=== PATIENT | female | born 2005 | race Caucasian/White ===

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

== ENCOUNTER 2023-09-30 20:13 | Observation (INO) | payer OTHER, SELFPAY ==
--- NOTE | ~2023-09-30 | CT_ITS ---
EXAMINATION: CT soft tissue neck w con DATE: 09/30/2023 21:35 INDICATION: Right submandibular cellulitis. Right-sided mouth and neck pain. TECHNIQUE: Computed tomography (CT) of the neck was performed with 75 mL Omnipaque-350 intravenous co ntrast. Automated exposure control and iterative reconstruction technique were employed. The dose-billy gth product was 481.15 mGy-cm. COMPARISON: None FINDINGS: There is mild mucosal thickening in the ethmoid sinuses. The mastoid air cells are normal. Tooth 31 demonstrates a alevism. There are periapical lucencies at tooth 31 with breech of the li ngual cortex of the alveolar process. There is extension of soft tissue attenuation inferiorly from t his area to the skin, consistent with phlegmon. There are no pathologically enlarged lymph nodes. The re is kyphosis of cervical spine. IMPRESSION: 1. Periapical lucencies at tooth #31 with breech of the lingual cortex of the alveolar process with p hlegmon extending inferiorly to the skin. Reviewed, dictated and finalized at location E. IMPRESSION: 1. Periapical lucencies at tooth #31 with breech of the lingual cortex of the a lveolar process with phlegmon extending inferiorly to the skin.
[2023-09-30 20:17] VITALS: BP 126/76; PULSE 72; RESP 18; TEMP 36.8; O2SAT 100
--- NOTE | 2023-09-30 20:18 | ED.SKABFB ---
HPI - Skin/Abscess/Foreign Bdy General Chief complaint: Skin/Abscess/Foreign Body Stated complaint: abscess Time Seen by Provider: 09/30/23 20:17 Source: patient Mode of arrival: ambulatory Limitations: no limitations History of Present Illness HPI narrative: 17-year-old female presents to the ER with -- a cystic swelling in the anterior upper neck with surrounding redness. The patient has had a recurrent swelling with discharge with spontaneous resolution. She has had multiple rounds of antibiotics over the years. -- pain swelling around right lateral mandible and extends to the submandibular region. No fever or chills no obvious dental abnormality Other than an unerupted right lower 3rd molar history of tonsillectomy and adenoidectomy in the past no ear pain or drainage. Onset (ago): day(s) Tetanus up to date: yes Location: neck Severity: severe Pain Consistency: constant Relieving factors: none Exacerbating factors: none Context: none Associated symptoms: denies other symptoms Treatments prior to arrival: none Related Data Home Medications Medication Instructions Recorded Confirmed No Home Medications 09/30/23 09/30/23 Allergies Allergy/AdvReac Type Severity Reaction Status Date / Time No Known Allergies Allergy Unknown Verified 09/30/23 20:46 Review of Systems Review of Systems: All systems reviewed & are unremarkable except as noted in HPI and below Constitutional: Constitutional: Reports as per HPI and Reports no additional constitutional complaints Eyes: Eyes: Reports as per HPI and Reports no additional eye complaints ENT: Reports system reviewed and no additional complaints, except as documented and Reports as per HPI Comments: Right jaw pain. Pain around unerupted 3rd molar in the right lower jaw Cardiovascular: Cardiovascular: Reports as per HPI and Reports no additional cardiovascular complaints Respiratory: Respiratory: Reports as per HPI and Reports no additional respiratory complaints Gastrointestinal: Gastrointestinal: Reports as per HPI and Reports no additional gastrointestinal complaints Genitourinary: Genitourinary: Reports no additional female genitourinary complaints and Reports as per HPI Musculoskeletal: Musculoskeletal: Reports no additional musculoskeletal complaints and Reports as per HPI Integumentary/Breasts: Skin/Breast: Reports system reviewed and no additional complaints, except as docu and Reports as per HPI Comments: pain and swelling in right mandibular /submandibular region. Cystic swelling in the midline above the hyoid bone Neurologic: Reports system reviewed and no additional complaints, except as documented and Reports as per HPI Psychiatric: Psychiatric: Reports no additional psychiatric complaints and Reports as per HPI Endocrine: Endocrine: Reports no additional endocrine complaints and Reports as per HPI Hematologic/Lymphatic: Hematologic/Lymphatic: Reports no additional hematologic/lymphatic complaints and Reports as per HPI Allergic/Immunologic: Allergic/Immunologic: Reports no additional allergic/immunologic complaints and Reports as per HPI [facility] Past Medical History Medical History Anxiety Asthma Depression Endometriosis High cholesterol Missed x4 PCOD (polycystic ovarian disease) Surgical History Surgical History History of tonsillectomy and adenoidectomy Family History Family History Grandparent Colon cancer Diabetes mellitus Acute myocardial infarction Mother Polycystic ovary Endometriosis Social History Social History Smoking status: Never smoker Second hand tobacco smoke exposure: No Alcohol intake: never Substance use: never Substance use type: marijuana [place]
[2023-09-30 20:52] LABS: Basophils Absolute Auto 0.08 K/mm3 (0.00-0.10); Basophils Percent Auto 0.5 % (0.0-1.0); Eosinophils Absolute Auto 0.47 K/mm3 (0.02-0.50); Eosinophils Percent Auto 2.9 % (1.0-6.0); Hematocrit 45.1 % (35.0-49.0); Hemoglobin 14.5 g/dL (12.0-15.0); Immature Granulocyte Absolute 0.06 K/mm3 (0.00-0.00); Immature Granulocyte Percent A 0.4 % (0.0-0.0); Lymphocytes Absolute Auto 2.44 K/mm3 (1.10-4.50); Lymphocytes Percent Auto 15.3 % (18.0-42.0); Mean Corpuscular HGB Conc 32.2 g/dL (32-36); Mean Corpuscular Volume 90.2 fL (78.0-102.0); Mean Platelet Volume 9.6 fl (9.2-11.8); Monocytes Absolute Auto 0.81 K/mm3 (0.10-0.90); Monocytes Percent Auto 5.1 % (2.0-11.0); Neutrophils Absolute Auto 12.11 K/mm3 (1.70-7.20); Neutrophils Percent Auto 75.8 % (50.0-70.0); Platelet Count Result 318 K/mm3 (150-420); Red Cell Distribution Width 12.6 % (11.6-14.4)
[2023-09-30] MEDS: HYDROcodone/acetaminophen (*CRX) 5-325 MG TABLET 1 TAB PO (20:57)
[2023-09-30] MEDS: PIPERACILLN/TAZ 3.375GM/NS50ML 3.375 GM/50 ML BAG IVPB (20:57)
[2023-09-30] MEDS: LACTATED RINGERS 1,000 ML 999 ML IV CONT (20:57)
[2023-09-30 20:59] LABS: Pregnancy On Board Control Positive; Urine Pregnancy Test Negative
--- NOTE | 2023-09-30 21:02 | PC.NURSE ---
PATIENT MEDICATED PER ORDER, SEE MAR. UPDATE PROVIDED. PATIENT TEARFUL. IVF INFUSING WITHOUT DIFFICULTY, LIGHTS DIMMED PER PATIENT REQUEST FOR COMFORT. ICE BAG APPLICATION CONTINUED.
[2023-09-30 21:07] LABS: Alanine Aminotransferase 20 U/L (14-59); Albumin Level 4.4 g/dL (3.4-5.0); Alkaline Phosphatase 87 U/L (50-130); Anion Gap 12 mmol/L (4-12); Aspartate Amino Transferase 14 U/L (15-37); Bilirubin,Total 0.5 mg/dL (0.00-1.00); Blood Urea Nitrogen 14 mg/dL (7-18); Calcium 9.5 mg/dL (8.5-10.1); Carbon Dioxide 28 mmol/L (21-32); Chloride 103 mmol/L (98-108); Estimated CRCL calculation 94 ml/min; Estimated Glomerular Filt Rate > 60; Glucose 108 mg/dL (70-99); Osmolality Calculated 297 mOsm/kg (285-295); Potassium 3.5 mmol/L (3.5-5.1); Sodium 143 mmol/L (136-145); Total Protein 7.8 g/dL (6.4-8.2)
[2023-09-30 21:10] LABS: Lactic Acid Reflex 2.4 mmol/L (0.4-2.0)
[2023-09-30 21:12] LABS: Appearance Urine Clear (Clear); Bilirubin Urine Negative (Negative); Blood Urine Trace-intact (Negative); Color Urine Light Yellow (Yellow); Glucose Urine UA Negative (Negative); Ketones Urine Negative (Negative); Leukocyte Esterase Ur 2+ LEU/UL (Negative); Nitrate Urine Negative (Negative); Protein Urine Negative (Negative); Urobilinogen Urine 0.2 mg/dL (0.2-1.0)
[2023-09-30 21:18] LABS: Add Urine Microscopic? YES; Bacteria Urine 1+ /hpf; RBC Urine 0-2 /hpf (0-2); Squamous Epithelial Cell Urine Few /hpf (Few)
--- NOTE | 2023-09-30 21:25 | PC.NURSE ---
PATIENT OFF FLOOR TO CT SCAN VIA WHEELCHAIR BY [employer] AT THIS TIME.
--- NOTE | 2023-09-30 22:12 | PC.NURSE ---
DR. VANCE AT PATIENT BEDSIDE FOR UPDATE INCLUDING RESULTS AND PLAN OF CARE.
--- NOTE | 2023-09-30 22:21 | PC.NURSE ---
PATIENT AGAIN REFUSED TO CHANGE INTO GOWN DESPITE BEING ADMITTED.
[2023-09-30] MEDS: AMPICILLIN SULB 3 GM/NS 100 ML 3 GM/100 ML VIAL IVPB (22:43)
[2023-09-30] MEDS: MORPHINE SULFATE (*CRX) 2 MG/ML INJ IV PUSH (22:44)
[2023-09-30] MEDS: ONDANSETRON INJ 4 MG/2 ML VIAL IV PUSH (22:48)
[2023-09-30] MEDS: ACETAMINOPHEN 325 MG TABLET 650 MG PO (22:49)
[2023-09-30 22:53] VITALS: BP 118/73; PULSE 65; RESP 18; TEMP 37.1; O2SAT 99
[2023-09-30 23:19] VITALS: BMI 31.4
[2023-09-30 23:49] LABS: Reflex Lactic Acid Yes or No Add Lactic
[2023-10-01] VITALS: BP 119/66; PULSE 60; RESP 16; TEMP 36.6; O2SAT 95
[2023-10-01 00:12] LABS: Lactic Acid 0.7 mmol/L (0.4-2.0)
[2023-10-01] MEDS: MORPHINE SULFATE (*CRX) 2 MG/ML INJ IV PUSH ×2 (02:43→06:46)
[2023-10-01] MEDS: ACETAMINOPHEN 325 MG TABLET 650 MG PO ×2 (02:45→11:57)
[2023-10-01] MEDS: AMPICILLIN SULB 3 GM/NS 100 ML 3 GM/100 ML VIAL IVPB ×2 (06:47→11:33)
--- NOTE | 2023-10-01 07:53 | PM.IMHP ---
H&P: HPI History of Present Illness Date/Time: 10/01/23 07:53 Chief Complaint: abscess Narrative: This is a 17 year old female that has a mandiable abscess per patient she has had for three years. Patient states she has a medical card and she has to find an water and fire technician that will take her insurance. Per patient she normall y takes Ibuprofen and tyelenol and eventually the pain will go away. According to pateint it has burst and has been draining,. She normally reopens it when it stops draining. She has come in due to she is unable to take the pain. patient states she has 2 kids and she is wanting to take the pain away as it is unbearable. According to patient the pain in not uncontrolled and the morphine does not last. [facility] Past Medical History Medical History Anxiety Asthma Depression Endometriosis High cholesterol Missed x4 PCOD (polycystic ovarian disease) Surgical History Surgical History History of tonsillectomy and adenoidectomy Family History Family History Grandparent Colon cancer Diabetes mellitus Acute myocardial infarction Mother Polycystic ovary Endometriosis Social History Social History Smoking status: Never smoker Second hand tobacco smoke exposure: No Alcohol intake: current Substance use: current Substance use type: marijuana Last use: DAILY Do You Feel Safe in your Home?: Yes Lack of Transportation: No Lack of Food: Never True Current Housing: I Have Housing Concerned About Future Housing: No Difficulty Paying Gas/Electric Bills: No Difficulty Paying for Meds: No Currently Unemployed: No Education: Grade School Difficulty w/ Childcare or Family Care: No Living arrangements: with family Gender identity (if verbalized by the patient): Female Spiritual care concerns: No Meds Home Medications and Allergies Home Medications Medication Instructions Recorded Confirmed Type No Home Medications 09/30/23 09/30/23 History Allergies Allergy/AdvReac Type Severity Reaction Status Date / Time No Known Allergies Allergy Unknown Verified 09/30/23 20:46 Vital Signs Vital Signs - 24 hr 09/30/23 20:17 09/30/23 22:53 10/01/23 00:00 Temperature 98.3 F 98.8 F 97.9 F Pulse Rate 72 65 60 Respiratory Rate 18 18 16 Blood Pressure 126/76 118/73 119/66 Pulse Oximetry 100 99 95 Oxygen Delivery Room Air Room Air Room Air H&P: Results Labs Labs: Short CBC 09/30/23 Range/Units 20:48 WBC 16.0 H (4.8-10.8) K/mm3 Hgb 14.5 (12.0-15.0) g/dL Hct 45.1 (35.0-49.0) % Plt Count 318 (150-420) K/mm3 BMP 09/30/23 20:48 Sodium 143 Potassium 3.5 Chloride 103 Carbon Dioxide 28 BUN 14 Creatinine 0.94 Glucose 108 H Calcium 9.5 Liver Function 09/30/23 Range/Units 20:48 Total Bilirubin 0.5 (0.00-1.00) mg/dL AST 14 L (15-37) U/L ALT 20 (14-59) U/L Alkaline Phosphatase 87 (50-130) U/L Albumin 4.4 (3.4-5.0) g/dL Urine 09/30/23 Range/Units 21:08 Urine Color Light yellow (Yellow) Urine Appearance Clear (Clear) Urine pH 7.0 (5.0-8.0) Ur Specific Sylvia 1.020 (1.010-1.020) Urine Protein Negative (Negative) Urine Glucose (UA) Negative (Negative)
[2023-10-01 08:00] VITALS: BP 122/68; PULSE 60; RESP 14; TEMP 36.8; O2SAT 95
--- NOTE | 2023-10-01 08:19 | PM.SD2 ---
Same Day Admit/Disch: HPI History of Present Illness Chief complaint: PERIAPICAL ABSCESS Narrative: Jami Broussard is a 17 [place] [address] Emergency Room Visit Note Signed Patient: Jami Broussard MR#: [id number] : 2005 Acct:[id number] Age: 17 ADM Date: 09/30/23 [facility]: cc: Jose Stone MD; UNKNOWN,DOCTOR~ HPI - Skin/Abscess/Foreign Bdy General Chief complaint: Skin/Abscess/Foreign Body Stated complaint: abscess Time Seen by Provider: 09/30/23 20:17 Source: patient Mode of arrival: ambulatory Limitations: no limitations History of Present Illness HPI narrative: ?17-year-old female presents to the ER with -- a cystic swelling in the anterior upper neck with surrounding redness. ? The patient has had a recurrent swelling with discharge with spontaneous resolution.? She has had multiple rounds of antibiotics over the years. -- pain swelling around right lateral mandible and extends to the submandibular region. ? No fever or chills ?no obvious dental abnormality ? Other than an unerupted right lower 3rd molar ?history of tonsillectomy and adenoidectomy in the past ?no ear pain or drainage. [facility] Past Medical History Medical History Anxiety Asthma Depression Endometriosis High cholesterol Missed x4 PCOD (polycystic ovarian disease) Surgical History Surgical History History of tonsillectomy and adenoidectomy Family History Family History Grandparent Colon cancer Diabetes mellitus Acute myocardial infarction Mother Polycystic ovary Endometriosis Social History Social History Smoking status: Never smoker Second hand tobacco smoke exposure: No Alcohol intake: current Substance use: current Substance use type: marijuana Last use: DAILY Do You Feel Safe in your Home?: Yes Lack of Transportation: No Lack of Food: Never True Current Housing: I Have Housing Concerned About Future Housing: No Difficulty Paying Gas/Electric Bills: No Difficulty Paying for Meds: No Currently Unemployed: No Education: Grade School Difficulty w/ Childcare or Family Care: No Living arrangements: with family Gender identity (if verbalized by the patient): Female Spiritual care concerns: No Same Day Admit/Disch: Med Pre-admit Medications Home Medications Medication Instructions Recorded Confirmed Type amoxicillin 500 mg tablet 500 mg PO Q8H #30 tabs 10/01/23 Rx hydrocodone 5 mg-acetaminophen 325 1 tablet PO Q6H PRN pain #20 tabs 10/01/23 Rx mg tablet ibuprofen 600 mg tablet 600 mg PO TID PRN pain #20 tabs 10/01/23 Rx Review of Systems Review of Systems maniable abscess and cellulitis All systems reviewed & are unremarkable except as noted in HPI and below Exam Const: General: cooperative, healthy appearing, comfortable and no acute distress Orientation/consciousness: oriented to person, oriented to place, oriented to time and patient oriented x3 HENMT: Head: normal to inspection Face/Nose/Sinus: Normal external nose present Face and sinus: normal facial exam Face images: 1. abscess hard nodule with drainage scant amount Mouth: Yes Normal oral and palatal mucosa present and Yes moist mucous membranes Eyes: General: appearance normal, both eyes and all related structures Pupils: Equal, round and reactive pupils present Neck: Neck: normal visual inspection Chest: Chest palpation & inspection: normal inspection of the chest Resp: Effort & Inspection: normal respiratory effort and able to speak in complete sentences Cardio: Jugular ve
[2023-10-01] MEDS: MORPHINE SULFATE (*CRX) 2 MG/ML INJ (09:05)
[2023-10-01] MEDS: methylPREDNISolone SOD SUCC 40 MG VIAL (09:05)
--- NOTE | 2023-10-01 13:14 | PC.NURSE ---
Pt discharged to home with spouse. Discharge instructions given to both. Medication instructions, pain medication instructions, follow up instructions and a listing of doctors in the area. Pt also given the phone number for the [facility] for help finding dental care and mental health care. Pt taken to [place] car by LEANN per RN.
--- NOTE | 2023-10-02 09:16 | PC.NURSE ---
Discharge call back complete, no questions or concerns with dc instructions she received.
== END 2023-10-01 12:25 | disposition home or self-care (01) ==
LOC: CHSED 22:20 → CHS2ND 22:26
PROVIDERS: Admitting Provider Internal Medicine; Emergency Provider Internal Medicine Critical Care Medicine; Visit Provider Internal Medicine
DX: K04.7 Periapical abscess without sinus (principal); K12.2 Cellulitis and abscess of mouth; N39.0 Urinary tract infection, site not specified; F41.9 Anxiety disorder, unspecified; J45.909 Unspecified asthma, uncomplicated; E78.00 Pure hypercholesterolemia, unspecified; F10.90 Alcohol use, unspecified, uncomplicated; F12.90 Cannabis use, unspecified, uncomplicated
CPT/HCPCS: 36415; 70491; 80053; 81001; 81025; 83605; 85025; 87040; 87086; 87088; 96361; 96365; 96366; 96367; 96375; 96376; 99285; A9270; G0378; G0379; J0295; J2270; J2405; J2543; J2919; J7120; Q9967

== ENCOUNTER 2023-11-19 11:08 | Emergency (ER) | payer OTHER, SELFPAY ==
--- NOTE | ~2023-11-19 | US_ITS ---
EXAMINATION: US pelvic complete DATE: 11/19/2023 11:43 INDICATION: Additional and pelvic pain with bleeding Comparison:Ultrasound dated 07/30/2020 TECHNIQUE: Multiple transabdominal sonographic images of the pelvis performed. Patient refused transv aginal examination. FINDINGS: The uterus measures 7.2 x 5.4 x 3.8 cm. The endometrial complex measures 1.4 mm. The right ovary measures 3.1 x 2.2 x 2 cm and the left ovary measures 3.3 x 1.8 x 1.5 cm. There are small follicles in each ovary. Normal doppler signal in both ovaries. There is no free fluid in the pelvis. There are no abnormal masses seen on either side. IMPRESSION: 1. Unremarkable pelvic ultrasound. Reviewed, dictated and finalized at location B.
[2023-11-19 11:08] VITALS: BP 133/70; PULSE 88; RESP 20; TEMP 36.4; O2SAT 100
[2023-11-19 11:30] VITALS: BP 140/71; PULSE 66; RESP 17; O2SAT 99
[2023-11-19 11:34] LABS: Appearance Urine Sl Cloudy (Clear); Bilirubin Urine Negative (Negative); Blood Urine 3+ (Negative); Color Urine Yellow (Yellow); Glucose Urine UA Negative (Negative); Ketones Urine Negative (Negative); Leukocyte Esterase Ur Trace LEU/UL (Negative); Nitrate Urine Negative (Negative); Protein Urine Trace (Negative); Urobilinogen Urine 0.2 mg/dL (0.2-1.0)
[2023-11-19 11:43] LABS: Add Urine Microscopic? YES; RBC Urine >75 /hpf (0-2); Squamous Epithelial Cell Urine Moderate /hpf (Few); WBC Urine 0-3 /hpf (0-3)
[2023-11-19 11:44] LABS: Bacteria Urine Trace /hpf; Mucus Urine Few /lpf
[2023-11-19 12:04] LABS: Basophils Absolute Auto 0.02 K/mm3 (0.00-0.10); Basophils Percent Auto 0.4 % (0.0-1.0); Eosinophils Absolute Auto 0.15 K/mm3 (0.02-0.50); Eosinophils Percent Auto 2.8 % (1.0-6.0); Hematocrit 39.3 % (35.0-49.0); Hemoglobin 13.1 g/dL (12.0-15.0); Immature Granulocyte Absolute 0.01 K/mm3 (0.00-0.00); Immature Granulocyte Percent A 0.2 % (0.0-0.0); Lymphocytes Absolute Auto 0.89 K/mm3 (1.10-4.50); Lymphocytes Percent Auto 16.5 % (18.0-42.0); Mean Corpuscular HGB Conc 33.3 g/dL (32-36); Mean Corpuscular Hemoglobin 29.6 pg (27.0-31.0); Mean Corpuscular Volume 88.9 fL (78.0-102.0); Mean Platelet Volume 9.8 fl (9.2-11.8); Monocytes Absolute Auto 0.35 K/mm3 (0.10-0.90); Monocytes Percent Auto 6.5 % (2.0-11.0); Neutrophils Absolute Auto 3.97 K/mm3 (1.70-7.20); Neutrophils Percent Auto 73.6 % (50.0-70.0); Platelet Count Result 228 K/mm3 (150-420); Red Blood Count 4.42 M/mm3 (4.20-5.40); Red Cell Distribution Width 12.8 % (11.6-14.4); White Blood Count 5.4 K/mm3 (4.8-10.8)
--- NOTE | 2023-11-19 12:14 | ED.FEMALEGU ---
HPI - Female Genitourinary General Chief complaint: Vaginal Bleeding Stated complaint: vaginal bleeding Time Seen by Provider: 11/19/23 11:17 Source: patient Mode of arrival: ambulatory Limitations: no limitations History of Present Illness HPI Narrative: this is a 18-year-old female with a history ovarian cyst, with history of polycystic ovarian disease and history of endometriosis presents with vaginal bleeding vitals are stable has some pelvic discomfort with no fever chills no flank pain, patient states that she has some dizziness. Otherwise no nausea vomiting no chest pain no shortness of breath. MD elicited complaint: vaginal bleeding Pertinent past history: other ( History of endometriosis) Onset (ago): day(s) Severity: mild Related Data Allergies Allergy/AdvReac Type Severity Reaction Status Date / Time No Known Allergies Allergy Unknown Verified 11/19/23 11:16 Review of Systems Review of Systems: All systems reviewed & are unremarkable except as noted in HPI and below PMFSH Past Medical History Medical History Anxiety Asthma Depression Endometriosis High cholesterol Missed x4 PCOD (polycystic ovarian disease) Surgical History Surgical History History of tonsillectomy and adenoidectomy Family History Family History Grandparent Colon cancer Diabetes mellitus Acute myocardial infarction Mother Polycystic ovary Endometriosis Social History Social History Smoking status: Never smoker Second hand tobacco smoke exposure: No Alcohol intake: current Substance use: current Substance use type: marijuana Last use: DAILY Do You Feel Safe in your Home?: Yes Lack of Transportation: No Lack of Food: Never True Current Housing: I Have Housing Concerned About Future Housing: No Difficulty Paying Gas/Electric Bills: No Difficulty Paying for Meds: No Currently Unemployed: No Education: Grade School Difficulty w/ Childcare or Family Care: No Living arrangements: with family Gender identity (if verbalized by the patient): Female Spiritual care concerns: No Exam Const: General: healthy appearing Nutritional Appearance: well nourished Orientation/consciousness: patient oriented x3 Limitations: no limitations Neck: Neck: normal visual inspection, no lymphadenopathy and no meningeal signs Resp: Effort & Inspection: normal respiratory effort Auscultation: clear to auscultation bilaterally Cardio: Rate: regular rate Rhythm: regular rhythm GI: GI Palp: Yes Soft to palpation Other: Suprapubic tenderness Back/Spine/Pelvis: Back: no CVA tenderness Skin: General skin exam: normal color Neuro: General: patient oriented x3 and moves all extremities Course Course Emergency Course: pelvic ultrasound does not show any acute abnormalities blood counts performed and reviewed and within normal limits patient declined vaginal exam. Vital Signs Vital signs: Vital Signs Temperature 36.4 C 11/19/23 11:08 Pulse Rate 88 11/19/23 11:08 Respiratory Rate 20 11/19/23 11:08 Blood Pressure 133/70 11/19/23 11:08 Pulse Oximetry 100 11/19/23 11:08 Oxygen Delivery Room Air 11/19/23 11:08 Temperature 36.4 C 11/19/23 11:08 Pulse Rate 88 11/19/23 11:08 Respiratory Rate 20 11/19/23 11:08 Blood Pressure 133/70 11/19/23 11:08 Pulse Oximetry 100 11/19/23 11:08 Oxygen Delivery Room Air 11/19/23 11:08 MDM - Female Genitourinary Lab Data 11/19/23 11:58 11/19/23 11:58 Labs: Lab Results 11/19/23 11/19/23 Range/Units 11:31 11:58 WBC 5.4 (4.8-10.8) K/mm3 RBC 4.42 (4.20-5.40) M/mm3 Hgb 13.1 (12.0-15.0) g/dL Hct 39.3 (35.0-49.0) % MCV 88.9 (
[2023-11-19 12:16] VITALS: BP 122/79; PULSE 60; RESP 20; TEMP 36.9; O2SAT 99
[2023-11-19 12:17] LABS: Alanine Aminotransferase 15 U/L (14-59); Albumin Level 4.3 g/dL (3.4-5.0); Alkaline Phosphatase 74 U/L (46-116); Anion Gap 12 mmol/L (4-12); Aspartate Amino Transferase 13 U/L (15-37); Bilirubin,Total 0.9 mg/dL (0.00-1.00); Blood Urea Nitrogen 15 mg/dL (7-18); Calcium 9.1 mg/dL (8.5-10.1); Carbon Dioxide 27 mmol/L (21-32); Chloride 103 mmol/L (98-108); Estimated CRCL calculation 99 ml/min; Estimated Glomerular Filt Rate > 60; Glucose 105 mg/dL (70-99); Osmolality Calculated 294 mOsm/kg (285-295); Potassium 3.5 mmol/L (3.5-5.1); Sodium 142 mmol/L (136-145); Total Protein 7.5 g/dL (6.4-8.2)
[2023-11-19 12:24] VITALS: BP 122/79; PULSE 60; RESP 20; TEMP 36.9; O2SAT 99
== END 2023-11-19 12:24 | disposition home or self-care (01) ==
PROVIDERS: Emergency Provider Emergency Medicine
DX: N93.9 Abnormal uterine and vaginal bleeding, unspecified (principal); R42 Dizziness and giddiness; N80.9 Endometriosis, unspecified; E28.2 Polycystic ovarian syndrome
CPT/HCPCS: 36415; 76856; 80053; 81001; 85025; 99284

== ENCOUNTER 2023-12-29 17:43 | Emergency (ER) | payer OTHER, SELFPAY ==
--- NOTE | ~2023-12-29 | CT_ITS ---
EXAMINATION: CT soft tissue neck w con DATE: 12/29/2023 19:13 INDICATION: Evaluate abscess/cyst draining into the right neck TECHNIQUE: Computed tomography (CT) of the neck was performed with 75 mL Omnipaque-350 intravenous co ntrast. Automated exposure control and iterative reconstruction technique were employed. The dose-billy gth product was 461.33 mGy-cm. COMPARISON: 09/30/2023 FINDINGS: Periapical lucency adjacent to the roots of the most posterior right mandibular molar, with adjacent cortical breakthrough. A soft tissue tract extends inferiorly to the skin surface The thyroid gland is unremarkable. The submandibular and parotid glands are symmetric. There is no cervical lymphad enopathy. There are no masses identified. The superior mediastinum is unremarkable. The airway is unremarkable. Parapharyngeal and pre-glottic fat planes are preserved. Normal enhancing neck v essels. Visualized sinuses and mastoid air cells are well aerated. Apices clear. Otherwise normal regional bones. IMPRESSION: Unchanged periapical lucency at the posterior most right mandibular molar with adjacent cortical anand ch and extension of phlegmon/tract to the skin surface. Correlate for active drainage or signs of inf ection/inflammation. Reviewed, dictated and finalized at location K. IMPRESSION: Unchanged periapical lucency at the posterior most right mandibular molar with adjacent cortical breach and extension of phlegmon/tract to the skin surface. C orrelate for active drainage or signs of infection/inflammation.
[2023-12-29 17:44] VITALS: BP 141/84; PULSE 131; RESP 20; TEMP 36.1; O2SAT 99
--- NOTE | 2023-12-29 17:59 | ED.GENADULT ---
HPI - General Adult General Chief complaint: Dental/Oral Stated complaint: denal abscess to lower right molar Time Seen by Provider: 12/29/23 17:50 History of Present Illness HPI narrative: The patient is a 18-year-old with a history of a dental abscess since March 2021 when she is also here in this emergency room and was prescribed antibiotics. She has seen a dentist but they have not pulled tooth or repaired it. She was seen here again on September 30, 2023 and had swelling of the right submandibular region with drainage, findings consistent with a draining abscess, from the right lower T with ( molar). She was discharged on oral amoxicillin for 10 days with dental follow-up. She has not been able to see a dentist since that time. The pain has recurred again in the right lower posterior molar with dental tenderness and sensitivity, with drainage in the right submandibular region and mild swelling of that area. she is tearful. No fevers. No dyspnea. No chills or diaphoresis. No other complaints. Past medical history is notable for obsessive-compulsive disorder, autism, borderline personality disorder, major depressive disorder, and PTSD. Prior tonsillectomy and adenoidectomy. Question pots in the past. Related Data Home Medications Medication Instructions Recorded Confirmed No Home Medications 12/29/23 12/29/23 Allergies Allergy/AdvReac Type Severity Reaction Status Date / Time No Known Allergies Allergy Unknown Verified 12/29/23 17:58 Review of Systems Review of Systems: All systems reviewed & are unremarkable except as noted in HPI and below Constitutional: Constitutional: Denies chills, Denies excessive sweating, Denies fatigue, Denies fever(s), Denies headache(s) and Denies weakness Eyes: Eyes: Denies change in vision and Denies photophobia ENT: Denies dysphagia, Denies dizziness, Denies headache(s), Denies lip swelling, Denies nasal congestion, Denies sore throat and Denies tongue swelling Comments: dental tenderness. Pain in the right submandibular region with drainage from one area. Cardiovascular: Cardiovascular: Denies chest pain, Denies syncope, Denies rapid heart rate and Denies dyspnea Respiratory: Respiratory: Denies cough, Denies dyspnea and Denies wheezing Gastrointestinal: Gastrointestinal: Denies abdominal pain, Denies constipation, Denies dysphagia, Denies diarrhea, Denies nausea and Denies vomiting Genitourinary: Genitourinary: Denies hematuria, Denies urinary frequency, Denies dysuria and Denies urinary urgency Musculoskeletal: Musculoskeletal: Denies back pain, Denies myalgias, Denies arthralgias, Denies joint swelling and Denies numbness Integumentary/Breasts: Skin/Breast: Denies pruritus, Denies erythema and Denies rash Neurologic: Denies confusion, Denies dizziness, Denies syncope, Denies headache(s), Denies focal weakness, Denies numbness and Denies weakness Psychiatric: Psychiatric: Denies anxiety and Denies confusion Endocrine: Endocrine: Denies excessive sweating and Denies fatigue Hematologic/Lymphatic: Hematologic/Lymphatic: Denies easy bleeding and Denies easy bruising Allergic/Immunologic: Allergic/Immunologic: Denies lip swelling, Denies tongue swelling and Denies wheezing PMFSH Past Medical History Medical History Anxiety Asthma Depression Endometriosis High cholesterol Missed x4 PCOD (polycystic ovarian disease) Surgical History Surgical History History of tonsillectomy and adenoidectomy Family History Family History Grandparent Colon cancer Diabetes mellitus Acute myocardial infarction Mother Polycystic ovary Endometriosis Social History Social History Smoking status: Never smoker Second hand tobacco smoke exposure:
[2023-12-29 18:15] LABS: Basophils Absolute Auto 0.04 K/mm3 (0.00-0.10); Basophils Percent Auto 0.4 % (0.0-1.0); Eosinophils Absolute Auto 0.36 K/mm3 (0.02-0.50); Eosinophils Percent Auto 3.7 % (1.0-6.0); Hematocrit 39.1 % (35.0-49.0); Hemoglobin 13.4 g/dL (12.0-15.0); Immature Granulocyte Absolute 0.03 K/mm3 (0.00-0.00); Immature Granulocyte Percent A 0.3 % (0.0-0.0); Lymphocytes Absolute Auto 2.59 K/mm3 (1.10-4.50); Mean Corpuscular HGB Conc 34.3 g/dL (32-36); Mean Corpuscular Hemoglobin 29.9 pg (27.0-31.0); Mean Corpuscular Volume 87.3 fL (78.0-102.0); Mean Platelet Volume 9.4 fl (9.2-11.8); Monocytes Absolute Auto 0.75 K/mm3 (0.10-0.90); Monocytes Percent Auto 7.8 % (2.0-11.0); Neutrophils Absolute Auto 5.84 K/mm3 (1.70-7.20); Neutrophils Percent Auto 60.8 % (50.0-70.0); Platelet Count Result 284 K/mm3 (150-420); Red Blood Count 4.48 M/mm3 (4.20-5.40); Red Cell Distribution Width 12.9 % (11.6-14.4); White Blood Count 9.6 K/mm3 (4.8-10.8)
[2023-12-29 18:31] LABS: Alanine Aminotransferase 12 U/L (14-59); Albumin Level 4.1 g/dL (3.4-5.0); Alkaline Phosphatase 77 U/L (46-116); Amylase 53 U/L (25-115); Anion Gap 11 mmol/L (4-12); Aspartate Amino Transferase 12 U/L (15-37); Bilirubin,Total 0.4 mg/dL (0.00-1.00); Blood Urea Nitrogen 12 mg/dL (7-18); CRP < 0.5 mg/dL (0.0-0.9); Calcium 9.5 mg/dL (8.5-10.1); Carbon Dioxide 26 mmol/L (21-32); Chloride 102 mmol/L (98-108); Estimated CRCL calculation 114 ml/min; Estimated Glomerular Filt Rate > 60; Glucose 88 mg/dL (70-99); Lipase 38 U/L (16-77); Osmolality Calculated 286 mOsm/kg (285-295); Potassium 3.8 mmol/L (3.5-5.1); Sodium 139 mmol/L (136-145); Total Protein 7.5 g/dL (6.4-8.2)
[2023-12-29 18:33] LABS: Lactic Acid Reflex 0.8 mmol/L (0.4-2.0)
[2023-12-29] MEDS: MORPHINE SULFATE (*CRX) 4 MG/ML INJ IV PUSH (18:33)
[2023-12-29 18:34] LABS: SPREG INTERNAL CONTROL Positive; Serum Qual hCG Negative
[2023-12-29] MEDS: AMPICILLIN SULB 3 GM/NS 100 ML 3 GM/100 ML VIAL IVPB (18:34)
[2023-12-29] MEDS: ONDANSETRON INJ 4 MG/2 ML VIAL IV PUSH (18:34)
[2023-12-29] MEDS: SODIUM CHLORIDE 0.9% IV 1,000 ML 999 ML IV CONT (18:35)
--- NOTE | 2023-12-29 19:00 | PC.NURSE ---
assumed care. report received from Patricia HWANG.
--- NOTE | 2023-12-29 19:02 | PC.NURSE ---
patient has returned from ct. restarted iv fluids and antibiotics. patient reports that she continues to have right side facial/mouth pain. requesting tylenol for pain. er provider was notified.
--- NOTE | 2023-12-29 19:02 | PC.NURSE ---
Pt returned to room from CAT scan. at bedside. IVs infusing. Report given to Annabel.
[2023-12-29] MEDS: ACETAMINOPHEN 500 MG TABLET 1000 MG PO (19:09)
[2023-12-29 19:17] LABS: Erythrocyte Sedimentation Rate 8 mm/hr (0-15)
[2023-12-29 20:45] VITALS: BP 123/71; PULSE 53; RESP 18; TEMP 36.6; O2SAT 100
[2023-12-29] MEDS: KETOROLAC 30 MG/ML VIAL (*BKC) IV PUSH (20:51)
--- NOTE | 2023-12-29 21:15 | PC.NURSE ---
Gregoria Romero is requesting that patient to be NPO after midnight and to send a disk from ct
[2023-12-29 21:34] LABS: Amphetamine Screen Urine Negative (Negative); Barbiturate Screen Urine Negative (Negative); Benzodiazepines Screen Urine Negative (Negative); Cannabinoid Screen Urine Positive (Negative); Cocaine Screen Urine Negative (Negative); Methadone Screen Urine Negative (Negative); Opiate Screen Urine Positive (Negative); Phencyclidine Screen Urine Negative (Negative)
--- NOTE | 2023-12-29 22:38 | PC.NURSE ---
patient and boyfriend have all transfer paperwork. disk also included
[2023-12-29 22:39] VITALS: BP 119/59; PULSE 62; RESP 18; TEMP 37; O2SAT 100
--- NOTE | 2023-12-29 22:39 | PC.NURSE ---
Notified Kishore Kapoor at [facility] that patient is now on her way to their facility via private vehicle
--- NOTE | 2024-01-05 13:15 | PC.NURSE ---
FINAL BLOOD CULTURE RESULTS X2: NO GROWTH AFTER 5 DAYS.
== END 2023-12-29 22:39 | disposition short-term general hospital (02) ==
PROVIDERS: Emergency Provider Emergency Medicine
DX: K04.6 Periapical abscess with sinus (principal)
CPT/HCPCS: 36415; 70491; 80053; 80307; 82150; 83605; 83690; 84703; 85025; 85652; 86140; 87040; 96361; 96365; 96375; 99284; J0295; J1885; J2270; J2405; J7030; Q9967

== ENCOUNTER 2024-06-23 14:34 | Emergency (ER) | payer OTHER, SELFPAY ==
--- NOTE | ~2024-06-23 | XR_ITS ---
EXAMINATION: XR knee RT 3V DATE: 06/23/2024 15:00 INDICATION: Right knee pain. Fall. TECHNIQUE: 3 views of right knee were obtained. COMPARISON: None. FINDINGS: Alignment is normal. No fracture. Joint spaces are normal. No knee joint effusion. IMPRESSION: 1. Normal right knee. Reviewed, dictated and finalized at location A. L SUPPORT ASSISTANT IMPRESSION: 1. Normal right knee.
[2024-06-23 14:38] VITALS: BP 144/62; PULSE 120; RESP 16; TEMP 36.4; O2SAT 99
[2024-06-23] MEDS: HYDROcodone/acetaminophen (*CRX) 5-325 MG TABLET 1 TAB PO (15:49)
[2024-06-23] MEDS: KETOROLAC (*BKC) 60 MG/2 ML VIAL IM (15:50)
--- NOTE | 2024-06-23 16:36 | ED_ITS ---
HPI - Extremity Injury (Lower) General Chief Complaint: Extremity Injury, Lower Stated Complaint: FALL, R knee pain Time Seen by Provider: 06/23/24 14:53 History of Present Illness HPI Narrative: Patient is a 18-year-old female who presents ER with right knee pain. Slipped on a seizure on the floor and drove her right knee into the ground. Unable to walk. Has tenderness over the anterior aspect of the tibial tuberosity. No swelling to the knee. No numbness or tingling. Did not strike her head or lose consciousness. Mild improvement with some [place] at home. Related Data Allergies Allergy/AdvReac Type Severity Reaction Status Date / Time No Known Allergies Allergy Unknown Verified 06/23/24 14:46 Review of Systems Constitutional: Constitutional: Reports no additional constitutional complaints Musculoskeletal: Musculoskeletal: Reports arthralgias, Denies joint swelling and Denies muscle cramps Neurologic: Reports system reviewed and no additional complaints, except as documented PMFSH Past Medical History Medical History Anxiety Asthma Depression Endometriosis High cholesterol Missed x4 PCOD (polycystic ovarian disease) Surgical History Surgical History History of tonsillectomy and adenoidectomy Family History Family History Grandparent Colon cancer Diabetes mellitus Acute myocardial infarction Mother Polycystic ovary Endometriosis Social History Social History Smoking status: Never smoker Second hand tobacco smoke exposure: No Alcohol intake: current Substance use: current Substance use type: marijuana Last use: DAILY Do You Feel Safe in your Home?: Yes Lack of Transportation: No Lack of Food: Never True Current Housing: I Have Housing Concerned About Future Housing: No Difficulty Paying Gas/Electric Bills: No Difficulty Paying for Meds: No Currently Unemployed: No Education: Grade School Difficulty w/ Childcare or Family Care: No Living arrangements: with family Gender identity (if verbalized by the patient): Female Spiritual care concerns: No Exam Narrative: GENERAL: Well-appearing, well-nourished, and in no acute distress. Sitting in a wheelchair. HEAD: Normocephalic, atraumatic. ENT: Mucous membranes moist. HEART: Regular rate and rhythm. Normal peripheral pulses. EXTREMITIES: Right lower extremity with tenderness over the tibial tuberosity without swelling or bruising. No joint effusion. Has tenderness over the MCL and LCL and the quadriceps tendon. Able to reach full extension but has pain with flexion. Neurovascular intact distal to the knee. SKIN: Warm, dry, no rash. NEURO: Alert and oriented x3. PSYCH: Normal mood and affect. Course Course Emergency Course: Likely contusion of the knee. Less likely ACL or PCL injury given lack of effusion. May have meniscal injury. Will place a knee immobilizer for comfort. Scheduled NSAIDs and [place]. Follow-up with ortho for further evaluation. Imaging without fracture. Vital Signs Vital signs: Vital Signs Temperature 97.5 F L 06/23/24 14:38 Pulse Rate 120 H 06/23/24 14:38 Respiratory Rate 16 06/23/24 14:38 Blood Pressure 144/62 H 06/23/24 14:38 Pulse Oximetry 99 06/23/24 14:38 Temperature 97.5 F L 06/23/24 14:38 Pulse Rate 120 H 06/23/24 14:38 Respiratory Rate 16 06/23/24 14:38 Blood Pressure 144/62 H 06/23/24 14:38 Pulse Oximetry 99 06/23/24 14:38 MDM - Extremity Injury (Lower) Imaging Data Radiologist's impression: ITS Impressions Knee X-Ray 06/23/24 15:01 IMPRESSION: 1. Normal right knee. Discharge Plan Discharge Clinical Impression: Injury of knee Patient Disposition: Home, Self-Care Condition: Stable Instructions: Knee Pain (ED), Knee Immobilizer (ED) Additional Instructions: Follow-up with orthopedic surgery. Wear your knee immobilizer and use crutches. Return to the ER if you have new injury, have chest pain with shortness of breath, have additional concerns. Patient Language: [place] Prescriptions: New hydrocodone-acetaminophen 5-325 mg tablet 1 tablet PO Q6H PRN (Reason: pain) Qty: 20 0RF naproxen 375 mg tablet 375 mg PO BID Qty: 14 0RF Follow-up/Referrals: Jonathan Malloy MD [Physician] - 1 Week UNKNOWN,DOCTOR [Primary Care Provider] -
== END 2024-06-23 16:55 | disposition home or self-care (01) ==
PROVIDERS: Emergency Provider Emergency Medicine
DX: S89.91XA Unspecified injury of right lower leg, initial encounter (principal); J45.909 Unspecified asthma, uncomplicated; E78.00 Pure hypercholesterolemia, unspecified; E28.2 Polycystic ovarian syndrome; W01.0XXA Fall on same level from slipping, tripping and stumbling without subsequent striking against object, initial encounter
CPT/HCPCS: 73562; 96372; 99283; A9270; J1885

== ENCOUNTER 2024-12-06 16:55 | Emergency (ER) | payer OTHER, SELFPAY ==
--- NOTE | ~2024-12-06 | US_ITS ---
[facility]IME[facility] ULTRASOUND 12/06/2024 19:00 CDT Ordering provider: Zaria Serna PA-C History: . flank pain, , vomiting . Comparison: None. FINDINGS: INTRAUTERINE GESTATIONAL SAC: Present. YOLK SAC: Present. POLE: Present. Measures 1.44 cm equivalent to 7 weeks and 5 days. BRADEN is July 20, 2025. heart rate is 167 bpm. GESTATIONAL AGE BY TODAY'S US: 7 weeks and 5 days. UTERUS: The uterus measures 6.4x 6.4x 6.2 cm in length which is within normal limits. No myometrial m asses. FREE FLUID: None. OVARIES: Normal in size with the right measuring 3.1x 2.1x 2.3 cm and the left measuring 3x 1.5x 2.1 cm. Doppler flow is demonstrated within both ovaries. ADNEXAL MASSES: None. IMPRESSION: Intrauterine Single live fetus of 7 weeks and 5 days. BRADEN is July 20, 2025 Reviewed, dictated and finalized at location A.
[2024-12-06 16:57] VITALS: BP 124/79; PULSE 72; RESP 16; TEMP 36.4; O2SAT 100
--- OUTSIDE RECORDS SUMMARY | 2024-12-06 16:57 | XMS_ITS | Encounter Summary ---
Author Organization [facility] Address [address] [place] [address] Phone Care Team Providers Care Naturopathic Doctor Name Role Phone Kings Stanford MD Primary Care Provider [phone] Belkys Michele EXEC. CREATIVE DIRECTOR Unavailable Unavailab Gaurav Ross MD Unavailable Unapeewee liu Reason for Visit * Reason Comments Medication Refill Encounter Details Date Type Department Care Team (Late st Contact Info) Description 10/21/2022 Refill [facility] - Family Medicine [facility] [address] [place] [address] Kings Stanford MD [address] [place] [address] Medication Refill Social History Tobacco Use Types Packs/Day Years Used Date Smoking Tobacco: Former Cigarettes 2019 Smokeless Tobacco: Never Alcohol Use Standard Drinks/Week Comments Not Currently 0 (1 standard drink = 0.6 oz pur e alcohol) occasionally PHQ-2 Answer Date Recorded Total Score - Questions 1-9 21 09/07 Comments No Sex and Gender Information Value Date Recorded Sex Assigned at Not on file Legal Sex Female 10:28 AM CDT Gender Identity Not on file Sexual Orientation Not on file COVID-19 Exposure Response Date Recorded In the last 10 days, have yo u been in contact with someone who was confirmed or suspected to have Coronavirus/COVID-19? No / Unsure 09/26/2022 9:57 AM CDT documented as of this encounter Miscellaneous Notes * Telephone Encounter - Alexa Palomino RN - 10/21/2022 10:49 AM CDT Medication failed the protocol, provider to review and approve the medication order if appropriate. Requested Prescriptions Pending Prescriptions Disp Refills escitalopram (LEXAPRO) 20 MG Tablet [Pharmacy Med Name: ESCITALOPRAM 20 MG TABLET] 90 Tablet 0 Sig: TAKE 1 TABLET BY MOUTH EVERY DAY SSRI (6 Month Refill Only) Protocol Failed - 10/21/2022 12:03 AM Failed - Patient has established therapy with SSRI for at least 6 months Passed - No test in the past 12 months or most recent test was negative Passed - No active on record Passed - Visit with relevant provider in past 6 months or upcoming 90 days Recent Visits Date Type Provider Dept 09/08/22 Office Visit Sonali Dow, CATCHER PLUG, STRATEGIC PLANNER [facility] 07/28/22 Office Visit Kings Stanford MD [facility] 05/22/22 Office Visit Kings Stanford MD [facility] Showing recent visits within past 182 days and meeting all other requirements Future Appointments No visits were found meeting these conditions. Showing future appointments within next 90 days and meeting all other requirements Passed - Has an encounter in the past 6 months with a depression, anxiety, adjustment disorder, OCD, or PTSD visit diagnosis documented in this encounter Plan of Treatment Not on file documented as of this encounter Goals Goal Patient Goal Type Associated Problems Recent Progress Patient-Stated? Author Depression with anxiety Behavioral Health No Teena Aj, HAT AND CAP SEWER Note: Goal/Objective: Improve coping with depression and related anxiety. Anticipated Time Frame for Goal Completion: 6 months Goal Reviewed with: patient Readiness to change: Ready to change Department associated with goal: [facility] Steps to achieve goal: will attend counseling/psychotherapy sessions at least once monthly at least 6 sessions , utilizing individual and/or group sessions to express thoughts and feelings. to identify, verbalize and process at least three contributing factors/triggers to anxiety and depression. T o identify at least two lifestyle changes/habits. to put into action, at least one lifestyle change/habit, for one month or longer, to reduce and or cope with anxiety and depression. I need a safe place. A place to talk. A place to vent. Behavioral Health Yes Teena Aj, HAT AND CAP SEWER Note: Goal/Objective: Reduce mood fluctuations and improve coping with them. Anticipated Time Frame for Goal Completion: 6 months Goal Reviewed with: patient Readiness to change: Ready to change Department associated with goal: [facility] Steps to achieve goal: will attend psychotherapy/counseling monthly at least 6 sessions and self disclose to have an outlet for distressing thoughts and feelings. will build insight regarding triggers, both internal and external; pt will be able to identify at least two internal and two external triggers to low and anxious moods. Will identify at least two skills/strategies to use when a triggering event occurs documented as of this encounter Visit Diagnoses Not on filedocumented in this encounter Additional Health Concerns Infection Onset Date Last Indicated Resolved Time COVID - 19 12/07/2022 12/07/2022 12/17/2022 12:1 6 AM CDT Assessment Noted Time PHQ-9 Depression Total Score: 21 023 4:00 PM CDT documented as of this encounter Care Teams Naturopathic Doctor Relationship Specialty Start Date End Date Kings Stanford MD [address] [place] [address] PCP - General Family Medicine 04/28/22 12/02/24 Belkys Michele LSW [place] Gripper Attacher 01/07/23 04/26/23 Gaurav Marquez MD [place] Consulting Physician Cardiovascular Disease - Cardiology 01/16/23 05/18/24 documented as of this encounter
--- OUTSIDE RECORDS SUMMARY | 2024-12-06 16:57 | XMS_ITS | Encounter Summary ---
Author Organization [facility] Address [address] [place] [address] Phone Care Team Providers Care Fire Investigator Name Role Phone Kings Stanford MD Primary Care Provider [phone] Belkys Michele LUMBER TAILER Unavailable Unavailab Gaurav Ross MD Unavailable Unapeewee liu Reason for Visit * Reason Comments Medication Refill Encounter Details Date Type Department Care Team (Late st Contact Info) Description 08/24/2022 Refill [facility] [address] [place] [address] iKngs Stanford MD [address] [place] [address] Medication Refill Social History Tobacco Use Types Packs/Day Years Used Date Smoking Tobacco: Former Cigarettes 2019 Smokeless Tobacco: Never Alcohol Use Standard Drinks/Week Comments Not Currently 0 (1 standard drink = 0.6 oz pur e alcohol) occasionally PHQ-2 Answer Date Recorded Total Score - Questions 1-9 27 07/10 Comments No Sex and Gender Information Value Date Recorded Sex Assigned at Not on file Legal Sex Female 10:28 AM CDT Gender Identity Not on file Sexual Orientation Not on file COVID-19 Exposure Response Date Recorded In the last 10 days, have yo u been in contact with someone who was confirmed or suspected to have Coronavirus/COVID-19? No / Unsure 07/28/2022 3:00 PM MOLDING ENGINEER documented as of this encounter Miscellaneous Notes * Telephone Encounter - Nirali Whittaker RN - 08/25/2022 9:01 AM CDT Medication failed the protocol, provider to review and approve the medication order if appropriate. Requested Prescriptions Pending Prescriptions Disp Refills busPIRone (BUSPAR) 10 MG Tablet [Pharmacy Med Name: BUSPIRONE HCL 10 MG TABLET] 180 Tablet 0 Sig: TAKE 2 TABLETS BY MOUTH 3 TIMES A DAY Buspirone (6 Month Refill Only) Protocol Failed - 08/24/2022 9:08 AM Failed - Patient has established therapy with Buspirone for at least 6 months Passed - No test in the past 12 months or most recent test was negative Passed - No active on record Passed - Visit with relevant provider in past 6 months or upcoming 90 days Recent Visits Date Type Provider Dept 07/28/22 Office Visit Kings Stanford MD [facility] 05/22/22 Office Visit Kings Stanford MD [facility] Showing recent visits within past 182 days and meeting all other requirements Future Appointments Date Type Provider Dept 09/05/22 Appointment Kings Stanford MD [facility] Showing future appointments within next 90 days and meeting all other requirements Passed - Has an encounter in the past 6 months with a depression or anxiety visit diagnosis escitalopram (LEXAPRO) 20 MG Tablet [Pharmacy Med Name: ESCITALOPRAM 20 MG TABLET] 30 Tablet 0 Sig: TAKE 1 TABLET BY MOUTH EVERY DAY SSRI (6 Month Refill Only) Protocol Failed - 08/24/2022 9:08 AM Failed - Patient has established therapy with SSRI for at least 6 months Passed - No test in the past 12 months or most recent test was negative Passed - No active on record Passed - Visit with relevant provider in past 6 months or upcoming 90 days Recent Visits Date Type Provider Dept 07/28/22 Office Visit Kings Stanford MD [facility] 05/22/22 Office Visit Kings Stanford MD [facility] Showing recent visits within past 182 days and meeting all other requirements Future Appointments Date Type Provider Dept 09/05/22 Appointment Kings Stanford MD [facility] Showing future appointments within next 90 days and meeting all other requirements Passed - Has an encounter in the past 6 months with a depression, anxiety, adjustment disorder, OCD, or PTSD visit diagnosis documented in this encounter Plan of Treatment Not on file documented as of this encounter Visit Diagnoses Diagnosis Depression with anxiety Dysthymic disorder documented in this encounter Additional Health Concerns Infection Onset Date Last Indicated Resolved Time COVID - 19 12/07/2022 12/07/2022 12/17/2022 12:1 6 AM CDT Assessment Noted Time PHQ-9 Depression Total Score: 023 7:00 AM MOLDING ENGINEER documented as of this encounter Care Teams Fire Investigator Relationship Specialty Start Date End Date Kings Stanford MD [address] [place] [address] PCP - General Family Medicine 04/28/22 12/02/24 Belkys Michele LSW [place] Copy Reader 01/07/23 04/26/23 Gaurav Marquez MD [place] Consulting Physician Cardiovascular Disease - Cardiology 01/16/23 05/18/24 documented as of this encounter
--- OUTSIDE RECORDS SUMMARY | 2024-12-06 16:57 | XMS_ITS | Encounter Summary ---
Author Organization [facility] Address [address] [place] [address] Phone Care Team Providers Care Groundhand Name Role Phone Kings Stanford MD Primary Care Provider [phone] Belkys Michele PATIENT TRANSPORTER Unavailable Unavailab Gaurav Ross MD Unavailable Unapeewee liu Reason for Visit * Reason Comments Medication Refill Encounter Details Date Type Department Care Team (Late st Contact Info) Description 03/04/2023 Refill [facility] - Family Medicine [facility] [address] [place] [address] Kings Stanford MD [address] [place] [address] Medication Refill Social History Tobacco Use Types Packs/Day Years Used Date Smoking Tobacco: Former Cigarettes 2019 Smokeless Tobacco: Never Alcohol Use Standard Drinks/Week Comments Yes 0 (1 standard drink = 0.6 oz pur e alcohol) Occasionally PHQ-2 Answer Date Recorded Total Score - Questions 1-9 10 07/2022 Comments No Sex and Gender Information Value Date Recorded Sex Assigned at Not on file Legal Sex Female 10:28 AM CDT Gender Identity Not on file Sexual Orientation Not on file COVID-19 Exposure Response Date Recorded In the last 10 days, have yo u been in contact with someone who was confirmed or suspected to have Coronavirus/COVID-19? No / Unsure 02/25/2023 1:35 PM CDT documented as of this encounter Miscellaneous Notes * Telephone Encounter - Adelaide Good RN - 03/04/2023 10:01 AM CDT Medication failed the protocol, provider to review and approve the medication order if appropriate. Requested Prescriptions Pending Prescriptions Disp Refills medroxyPROGESTERone Acetate (DEPO-PROVERA) 150 MG/ML Suspension Prefilled Syringe [Pharmacy Med Name: MEDROXYPROGESTERONE 150 MG/ML] Sig: INJECT 1 ML BY INTRAMUSCULAR ROUTE EVERY 90 DAYS FOR 1 DOSE. SHAKE WELL BEFORE USE Not Delegated - Oral Contraceptives Protocol Failed - 03/04/2023 12:27 AM Failed - This refill cannot be delegated Failed - Active on medication list Failed - No positive test in the past 12 months or most recent test was negative Passed - Visit with relevant provider in past 12 months or upcoming 90 days Recent Visits Date Type Provider Dept 02/06/23 Office Visit Kings Stanford MD [facility] 01/08/23 Office Visit Kings Stanford MD [facility] 12/15/22 Office Visit Di Philip APRN, [facility] 11/20/22 Office Visit Kings Stanford MD [facility] 09/08/22 Office Visit Sonali Dow APRN, [facility] 07/28/22 Office Visit Kings Stanford MD [facility] 05/22/22 Office Visit Kings Stanford MD [facility] Showing recent visits within past 365 days and meeting all other requirements Future Appointments No visits were found meeting these conditions. Showing future appointments within next 90 days and meeting all other requirements Passed - No active on record documented in this encounter Plan of Treatment Not on file documented as of this encounter Goals Goal Patient Goal Type Associated Problems Recent Progress Patient-Stated? Author Depression with anxiety Behavioral Health No Teena Aj, HISTOLOGY TEACHER Note: Goal/Objective: Improve coping with depression and related anxiety. Anticipated Time Frame for Goal Completion: 6 months Goal Reviewed with: patient Readiness to change: Ready to change Department associated with goal: [facility] Steps to achieve goal: [...] place to vent. Behavioral Health Yes Teena Aj LCSW Note: Goal/Objective: Reduce mood fluctuations and improve coping with them. Anticipated Time Frame for Goal Completion: 6 months Goal Reviewed with: patient Readiness to change: Ready to change Department associated with goal: [facility] Steps to achieve goal: [...] filedocumented in this encounter Additional Health Concerns Assessment Noted Time PHQ-9 Depression Total Score: 10 023 4:19 PM CDT documented as of this encounter Care Teams Groundhand Relationship Specialty Start Date End Date Kings Stanford MD [address] [place] [address] PCP - General Family Medicine 04/28/22 12/02/24 Belkys Michele LSW [place] Career Manager 01/07/23 04/26/23 Gaurav Marquez MD [place] Consulting Physician Cardiovascular Disease - Cardiology 01/16/23 05/18/24 documented as of this encounter
--- OUTSIDE RECORDS SUMMARY | 2024-12-06 16:57 | XMS_ITS | Encounter Summary ---
Author Organization [facility] Address [address] [place] [address] Phone Care Team Providers Care Electrician Sound Name Role Phone Kings Stanford MD Primary Care Provider [phone] Belkys Michele Unavailable Unavailab Gaurav Ross MD Unavailable Unapeewee liu Reason for Visit * Reason Comments Medication Refill Encounter Details Date Type Department Care Team (Late st Contact Info) Description 10/05/2022 [facility]ill [facility] [address] [place] [address] Sonali Dow, OFFICE SECRETARY, GAS LINE REPAIRER [address] [place] [address] Medication Refill Social History Tobacco Use Types [...] Telephone Encounter - Alexa Palomino RN - 10/06/2022 8:41 AM CDT Follow up with Abdoulaye 10/10/22 Medication failed the protocol, provider to review and approve the medication order if appropriate. Requested Prescriptions Pending Prescriptions Disp Refills buPROPion (WELLBUTRIN) 150 MG XL tablet [Pharmacy Med Name: BUPROPION HCL XL 150 MG TABLET] 30 Tablet 0 Sig: TAKE 1 TABLET BY MOUTH EVERY DAY IN THE MORNING Bupropion (6 Month Refill Only) Protocol Failed - 10/05/2022 7:08 AM Failed - Patient has established therapy with Bupropion for at least 6 months Passed - No test in the past 12 months or most recent test was negative Passed - No active on record Passed - Visit with relevant provider in past 6 months or upcoming 90 days Recent Visits Date Type Provider Dept 09/08/22 Office Visit Sonali Dow, SURJIT, GAS LINE REPAIRER [facility] 07/28/22 Office Visit Kings Stanford MD [facility] 05/22/22 Office Visit [facility] Showing recent visits within past 182 days and meeting all other requirements Future Appointments Date Type Provider Dept 10/10/22 Appointment Kings Stanford MD [facility] Showing future appointments within next 90 days and meeting all other requirements Passed - Has an encounter in the past 6 months with a depression or anxiety visit diagnosis documented in this encounter Plan of Treatment Not on file documented as of this encounter Goals Goal Patient Goal Type Associated Problems Recent Progress Patient-Stated? Author Depression with anxiety Behavioral Health No Teena Aj, CFD ENGINEER Note: Goal/Objective: Improve coping with depression and related anxiety. Anticipated Time Frame for Goal Completion: 6 months Goal Reviewed with: patient Readiness to change: Ready to change Department associated with goal: [facility] Steps to achieve [...] to vent. Behavioral Health Yes Teena Aj, CFD ENGINEER Note: Goal/Objective: Reduce mood fluctuations and improve coping with them. Anticipated Time Frame for Goal Completion: 6 months Goal Reviewed with: patient Readiness to change: Ready to change Department associated with goal: [facility] Steps to achieve [...] Diagnoses Diagnosis Depression with anxiety Dysthymic disorder Borderline personality disorder (HCC) Borderline personality disorder documented in this encounter Additional Health Concerns Infection Onset Date Last Indicated Resolved Time COVID - 19 12/07/2022 12/07/2022 12/17/2022 12:1 6 AM CDT Assessment Noted Time PHQ-9 Depression Total Score: 21 023 4:00 PM CDT documented as of this encounter Care Teams Electrician Sound Relationship Specialty Start Date End Date Kings Stanford MD [address] [place] [address] PCP - General Family Medicine 04/28/22 12/02/24 Belkys Michele LSW ME Engine Tester 01/07/23 04/26/23 Gaurav Marquez MD [place] Consulting Physician Cardiovascular Disease - Cardiology 01/16/23 05/18/24 documented as of this encounter
--- OUTSIDE RECORDS SUMMARY | 2024-12-06 16:57 | XMS_ITS | Referral Summary ---
Author Organization [facility] [address] Address [address] [place] [address] Phone Care Team Providers Care Planer Off Bearer Name Role Phone Sebastian Mcelroy MD Unavailable Chelsey High NP Primary Care Provider Encounters Date Type Department Care Team Description 11/29/2024 Orders Only [facility] [address] [place] [address] Alcira Adams, Encounter to determine viability of , single or unspecified fetus (Primary Dx) 11/25/2024 Results Follow-Up [facility] [address] [place] [phone] Zoila Ayala NP Vaginitis panel Vaginal, Urine culture Urine, bladder 11/24/2024 8:15 PM CDT - 11/24/2024 11:59 PM CDT Hospital Encounter [address] [address] Acute vaginitis; Burning with urination Discharge Disposition: Discharge to home or self care 11/24/2024 3:15 PM CDT Office Visit [facility] [address] [place] [phone] Camille Lloyd NP Burning with urination (Primary Dx); Acute cystitis with hematuria; Acute vaginitis 09/19/2024 1:00 PM CDT Office Visit [facility] [address] [place] [address] Art Stover MD Tachycardia with heart rate 121-140 beats per minute; Tachycardia; Fatigue, unspecified type; Postural dizziness with presyncope from Last 3 Months Allergies No known active allergies Medications cyclobenzaprine (FLEXERIL) 10 mg tablet Take 1 tablet (10 mg total) by mouth 3 (three) times a day as needed for muscle spasms 30 tablet Active Additional Information Patient not taking.Reported on 11/24/2024 omeprazole (PriLOSEC) 40 mg capsule Take 1 capsule (40 mg total) by mouth daily 90 capsule 3 5 08/23/19 Active Additional Information Patient not taking.Reported on 11/24/2024 meloxicam (MOBIC) 15 mg tablet Take 1 tablet (15 mg total) by mouth daily 30 tablet 1 Active Additional Information Patient not taking.Reported on 11/24/2024 cephalexin (KEFLEX) 500 mg capsuleIndicati ons:Burning with urination Take 1 capsule (500 mg total) by mouth 3 (three) times a day for 7 days 21 capsule 5 12/02/19 Active Problems Problem Noted Date Diagnosed Date Tachycardia with heart rate 121-140 beats per mi nute 08/22/2024 Chronic bilateral low back pain 08/22/2024 Gastroesophageal reflux disease 08/22/2024 Tachycardia 08/22/2024 Fatigue 08/22/2024 Postural dizziness with presyncope 08/22/2024 Polyarthralgia 08/22/2024 Encounter to establish care with new doctor 08/06 Screening for diabetes mellitus 08/19/2024 Screening, anemia, deficiency, iron 08/19/2024 Screening for lipid disorders 08/19/2024 Screening for thyroid disorder 08/19/2024 Dental abscess 12/30/2023 Borderline personality disorder 09/26/2022 39 weeks gestation of 06/04/2022 Closed nondisplaced fracture of shaft of fifth metacarpal bone of right hand 08/08/2019 Nevus 06/13/2015 Overview (08/18/2024): Normal number of nevi per age; one lesion in R axilla pedunculated and irritated (nevus vs acrochordon vs verrucous) 06/13/15: shave removal Estimated Date of Delivery Comme nts Yes 07/19/2025 Immunizations Immunization Administration Dates Next Due DTaP 02/11/2008, 5,08/09/2004,05/29,01/02/2004 HPV9 05/23/2015,03/23/2015 Hep A, Pediatric 07/11/2013,02/16/2012 Hep B / HiB 01/02/2004 Hep B, Adolescent or Pediatric 06/04/2005,2003 HiB 06/04/2005,05/29/2004 IPV 02/11/2008, 5,05/29/2004,01/01 Influenza, Quadrivalent, Spl it, Preservative Free, Intramuscular 02/28/2020,03/23/2015,07/11/2013 Influenza, Split 04/29/2010,03/26/2010, 8 Influenza, Trivalent, IM (MDV) 04/15/2011 Influenza, Trivalent, Preser vative Free, Intramuscular 06/21/2012 Influenza, Unspecified 08/18/2024(Deferr ed: Patient Refused),03/14/2024(Deferred: Patient Refused),04/01/2007,05/29/2004 MMR 06/06/2022(Deferred: No longer needed),02/11/2008,06/04/2005 Meningococcal B, unspecified 03/23/2015 Meningococcal MCV4P (Menactra) 03/23/2015 Pneumococcal Conjugate 7-Valent 06/04/20 05,08/09/2004,05/29/2004,01/01 Pneumococcal Conjugate PCV 13 03/04/2004 Tdap 06/06/2022(Deferred: No longer needed),04/08/2022,02/28/2020,03/23/20 15 Varicella 06/06/2022,02/11/2008,06/04/2005 Social History Tobacco Use Types Packs/Day Years Used Date Smoking Tobacco: Never Smokeless Tobacco: Never Tobacco Cessation:Counseling Given: Not Answered Social Connection and Isolat ion Panel [NHANES] Answer Date Recorded In a typical week, how many times do you talk on the phone with family, friends, or neighbors? More than three times a week 06/05/2022 How often do you get togethe r with friends or relatives? Once a week 06/05/2022 How often do you attend chur ch or yarsani services? Never 06/05/2022 Do you belong to any clubs o r organizations such as buddhism groups, unions, fraternal or athletic groups, or school groups? No 06/05/2022 How often do you attend meet ings of the clubs or organizations you belong to? Never 06/05/2022 Are you , , di vorced, , never , or living with a partner? Living with partner 06/05/2022 AUDIT-C Answer Date Recorded Q1: How often do you have a drink containing alcohol? Never 05/04/2022 Q2: How many drinks containi ng alcohol do you have on a typical day when you are drinking? Patient does not drink Q3: How often do you have si x or more drinks on one occasion? Never 05/04/2022 Overall Financial Resource Strain (CARDIA) Answe r Date Recorded How hard is it for you to pa y for the very basics like food, housing, medical care, and heating? Not very hard 06/05/2022 PHQ-2 Answer Date Recorded PHQ-2 Total Score (If total score is 3 or more points, staff should administer the PHQ-9) 0 08/[facility]/20[facility] Answer Date Recorded Do you feel stress - tense, restless, nervous, or anxious, or unable to sleep at night because your mind is troubled all the time - these days? To some extent 05/04/2022 Exercise Vital Sign Answer Date Recorde d On average, how many days pe r week do you engage in moderate to strenuous exercise (like a brisk walk)? 0 days 05/04/2022 On average, how many minutes do you engage in exercise at this level? 0 min 05/04/2022 Hunger Vital Sign Answer Date Recorded Within the past 12 months, y ou worried that your food would run out before you got the money to buy more. Never true 06/05/20 22 Within the past 12 months, t he food you bought just didn't last and you didn't have money to get more. Never true 06/05/2022 PRAPARE - Transportation Answer Date Re corded In the past 12 months, has l ack of transportation kept you from medical appointments or from getting medications? No 05/09 In the past 12 months, has l ack of transportation kept you from meetings, work, or from getting things needed for daily living? No 06/05/2022 Housing Stability Vital Sign Answer Wilder e Recorded In the last 12 months, was t here a time when you were not able to pay the mortgage or rent on time? No 06/05/2022 In the last 12 months, how many places have you lived? 3 06/05/2022 In the last 12 months, was t here a time when you did not have a steady place to sleep or slept in a halfway (including now)? 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 Gender Identity Not on file Sexual Orientation Not on file Last Filed Vital Signs Vital Sign Reading Time Taken Comments Blood Pressure 120/68 11/24/2024 3:06 PM CDT Pulse 113 11/24/2024 3:06 PM CDT Temperature 37.1 C (98.7 F) 11/24/2024 3:06 PM CDT Respiratory Rate 20 11/24/2024 3:06 PM CDT Oxygen Saturation 99% 11/24/2024 3:06 PM CDT Inhaled Oxygen Concentration - - Weight 88.5 kg (195 lb) 11/24/2024 3:06 PM CDT Height 167.6 cm (5' 6) 11/24/2024 3:06 PM CDT Body Mass Index 31.47 11/24/2024 3:06 PM CDT Plan of Treatment Not on file Procedures Procedure Name Priority Date/Time Associated Diagnosis Comments POCT URINALYSIS DIPSTICK Routine 025 3:16 PM CDT Burning with urination URINE CULTURE Routine 11/24/2024 12:00 PM CDT Burning with urination VAGINITIS PANEL Routine 11/24/2024 12:00 PM CDT Acute vaginitis ELECTROCARDIOGRAM REPORT Routine 025 3:20 PM CDT Tachycardia with heart rate 121-140 beats per minute Postural dizziness with presyncope N. GONORRHOEAE/C. TRACHOMATIS AMPLIFICATION Routine 04/07/2022 9:48 PM CDT from Last 3 Months or Most Recently Relevant to Health Maintenance Results * (ABNORMAL) POCT urinalysis dipstick (11/24/2024 3:16 PM CDT) Color, Urine, POC Light Yellow Clarity, ur, POC Cloudy(A) Clear Glucose, ur, POC Negative Negative Bilirubin, ur, POC Negative Negative Ketones, ur, POC Negative Negative Specific [place], POC 1.010 1.003 - 1.030 Blood, ur, POC Moderate(A) Negative pH, ur, POC 6.5 5.0 - 8.0 Protein, ur, POC Negative Negative Urobilinogen, urine, POC 0.2 0.2 - 1.0 mg/dL Nitrite, ur, POC Negative Negative Leukocytes, ur, POC Small(A) Negative Lot Number [id number] Urine 11/24/2024 3:16 PM CDT Camille Lloyd NP POINT OF CARE TEST ORDERAB LES Final Result * Vaginitis panel Vaginal (11/24/2024 12:00 PM CDT) Bacterial Vaginosis Not Detected Not Detected Comment:A negative result do es not preclude a possible infection. Results should be considered in conjunction with clinical presentation to determine the disease status. La group Not Detected Not Detected CERNER La glabrata/ krusei Not Detected Not Detected CERNER Trichomonas DNA Not Detected Not Detected CERNER Vaginal 11/24/2024 12:0 0 PM CDT 11/24/2024 8:41 PM CDT Narrative CERNER CH - 11/24/2024 10:02 PM CDT The [employer]ep[employer] Xpert Xpress MVP test detects DNA targets from anaerobic bacteria associated with bacterial vaginosis, La species associated with vulvovaginal candidiasis, and Trichomonas vaginalis by nucleic acid amplification testing (NAAT). Results should be interpreted in conjunction with other clinical data. This test cannot be used to assess therapeutic success or failure because target nucleic acids may persist following antimicrobial therapy. This test has been cleared by the [place] Food and Drug Administration to aid in the diagnosis of vaginal infections in symptomatic women ages 14 and older. The performance characteristics of this test have been verified by the [facility]. Camille Lloyd NP LAB MICROBIOLOGY - GENERAL ORDERABLES Final Result Performing Organization Address City/[facility] [address]/ZIP Co de Phone Number ASHLEY [id number] [place] [address] CH * (ABNORMAL) Urine culture Urine, bladder (11/24/2024 12:00 PM CDT) Report Final Report: Greater than or equal to 100,000 colonies/mL of Staphylococcus saprophyticus Routine susceptibility testing of Staphylococcus saprophyticus is not performed because infections respond to concentrations achieved in the urine of antimicrobials commonly used to treat uncomplicated urinary tract infections, such as nitrofurantoin, trimethoprim-sulfa methoxazole, or a fluoroquinolone. Plus growth of clinically insignificant bacterial trevor. (.) Comment:Testing performed by : [facility], [address] [place]., [address] Organism STAPHYLOCOCCUS SAPROPHYTICUS ASHLEY Organism PLUS GROWTH OF CLINICALLY INSIGNIFICANT TREVOR. ASHLEY Urine, bladder 11/24/2024 12 :00 PM CDT 11/25/2024 1:57 AM CDT Narrative ASHLEY - 11/26/2024 5:51 AM CDT Testing performed by [facility] Laboratory ([phone]) Camille Lloyd NP LAB MICROBIOLOGY - GENERAL ORDERABLES Final Result A[facility]LEY [id number] Department [place] [address] * Electrocardiogram Report (09/19/2024 3:20 PM CDT) Art Stover MD ECG ORDERABLES Final Result * N. gonorrhoeae/C. trachomatis Amplification Urine (04/07/2022 9:48 PM CDT) C. trachomatis Not detected Not detected [facility] (AMY) Comment:Testing performed by : [address] [address] N. gonorrhoeae Not detected Not detected ASHLEY [facility] (AMY) Comment: Testing performed by the [facility]. This assay detects Chlamydia trachomatis and Neisseria gonorrhoeae by nucleic acid amplification testing (NAAT). This test is approved by the [facility] Food and Drug Administration and the performance characteristics have been verified by the laboratory. The performance characteristics of this test have not been evaluated in women or individuals less than 16 years of age. Testing performed by: [address] [address] Urine (None) 04/07/2022 9:48 PM CDT 04/08/2022 10:13 AM CDT Isabel Hdez MD LAB MICROBIOLOGY - GENERAL ORDERABLES Final Result [facility] (AMY) [address] [facility] Department [place] [address] from Last 3 Months or Most Recently Relevant to Health Maintenance Insurance [employer] [facility] Advance Directives For more information, please contact: [phone] * Full Code (Latest Code Status on File) Date Activated Date Inactivated Comments 06/04/2022 5:42 AM 06/06/2022 5:39 PM * Full Code Date Activated Date Inactivated Comments 06/04/2022 12:40 AM 06/04/2022 5:42 AM Full CPR in case of cardiopulmonary arrest Care Teams Planer Off Bearer Relationship Specialty Start Date End Date Chelsey High NP [address] [place] [address] PCP - General Family Medicine 08/22/24 Sebastian Mcelroy MD [address] [place] [address] [address] SONAL[address] [place] [address] Equipment Sales Specialist Obstetrics and Gynecology 06/05/22
--- OUTSIDE RECORDS SUMMARY | 2024-12-06 16:57 | XMS_ITS | Clinical Summary ---
Author Organization [facility] [address] Address [address] [place] [address] Phone Care Team Providers Care Timing Inspector Name Role Phone Sebastian Mcelroy MD Unavailable [phone] Chelsey High NP Primary Care Provider [phone] Allergies No known active allergies Medications cyclobenzaprine (FLEXERIL) 10 mg tablet Take 1 tablet (10 mg total) by mouth 3 (three) times a day as needed for muscle spasms 30 tablet Active Additional Information Patient not taking.Reported on 11/24/2024 omeprazole (PriLOSEC) 40 mg capsule Take 1 capsule (40 mg total) by mouth daily 90 capsule 3 5 08/23/19 26 Active Additional Information Patient not taking.Reported on 11/24/2024 meloxicam (MOBIC) 15 mg tablet Take 1 tablet (15 mg total) by mouth daily 30 tablet 1 5 Active Additional Information Patient not taking.Reported on [...] Date of Delivery Comme nts Yes 07/19/2025 Encounters Date Type Department Care Team Description 11/29/2024 Orders Only [facility] [address] [place] [phone] Alcira Adams, Encounter to determine viability of , single or unspecified fetus (Primary Dx) 11/25/2024 Results Follow-Up [facility] [address] [place] [phone] Zoila Ayala NP Vaginitis panel Vaginal, Urine culture Urine, bladder 11/24/2024 8:15 PM CDT - 11/24/2024 11:59 PM CDT [place] [address] Acute vaginitis; Burning with urination Discharge Disposition: Discharge to home or self care 11/24/2024 3:15 PM CDT Office Visit [facility] [address] [place] [phone] Camille Lloyd NP Burning with urination (Primary Dx); Acute cystitis with hematuria; Acute vaginitis 09/19/2024 1:00 PM CDT Office Visit [facility] [address] [place] [address] Art Stover MD Tachycardia with heart rate 121-140 beats per minute; Tachycardia; Fatigue, unspecified type; Postural dizziness with presyncope from Last 3 Months Immunizations Immunization Administration Dates Next Due DTaP [...] 06/06/2022(Deferred: No longer needed),04/08/2022,02/28/2020,03/23/20 15 Varicella 06/06/2022,02/11/2008,06/04/2005 Medical History Medical History Date Comments Mental disorder Social History Tobacco Use Types Packs/Day Years [...] often do you attend chur ch or orthodox services? Never 06/05/2022 Do you belong to any clubs o r organizations such as baptist groups, unions, fraternal or athletic groups, or [...] staff should administer the PHQ-9) 0 08/22/2024 [facility] Occupational Stress Questionnaire Answer Date Recorded [...] place to sleep or slept in a assisted (including now)? No 06/05/2022 Estimated Date of Delivery Comme nts Yes 07/19/2025 Sex and Gender Information Value Date Recorded Sex Assigned at Not on file Legal Sex Female 10:18 AM CHANGE MANAGEMENT MANAGER Gender Identity Not on file Sexual Orientation Not on file Obstetrics History Para Term AB IAB SAB Ectopic Multiple Livin g Live Births 5 2 1 2 2 1 1 Date Outcome GA Total Labor Labor/2nd/3rd Weight Sex Type Anes PTL Keena A1 A5 Name Clin Para SAB SAB 2021 Term 39w 0d 1h 55m 1h 46m/0h 02m/0h 07m 3.168 kg (6 lb 15.8 oz) M Vag-S pont Spinal N Livin g 9 9 CRAWF ORD,B DAJUAN Singh n, Sebastian nelson MD Complications:Precipitous La bor (<3 hours) Delivery Location:[facility] Fac[facility] ([facility]) Current Comments Patient stated she has had a couple of miscarriages but is unsure on how many. Last Filed Vital Signs Vital Sign Reading [...] 11/24/2024 3:06 PM CDT Plan of Treatment Health Maintenance Due Date Last Done Comments Cervical Cancer Screening 2003 HPV Vaccines (3 - 2-dose series) 09/22/2015 05/23/2015, 03/23/2015 Meningococcal B Vaccine (1 of 2 - Standard) 2019 03/23/2015 Regular Well Visit/Exam 18-64 10/27/2021 Chlamydia and Gonorrhea (GC/CT) Screening 04/07/2023 04/07/2022 Influenza Vaccine (#1) 2025 0, 03/23/2015, 07/11/2013, Additional history exists Hepatitis C Screening 08/18/2025 Postpo asif from 2003 (Provider's clinical decision) Depression Screening 08/22/2025 08/22/2024, 04/08/2022, 04/08/2022 DTaP/Tdap/Td Vaccine (9 - Td or Tdap) 04/08/2032 04/08/2022, 02/28/2020, 03/23/2015, Additional history exists Hepatitis B Screening Completed 06/04/2005 , 01/02/2004, 2003 Pneumococcal vaccine <65 Completed 005, 08/09/2004, 05/29/2004, Additional history exists Meningococcal Vaccine Aged Out 03/23/2015 No chas medina eligible based on patient's age to complete this topic Varicella Vaccines Completed 06/06/2022, 0 02/11/2008, 06/04/2005 Procedures Procedure Name Priority Date/Time Associated Diagnosis [...] Negative Ketones, ur, POC Negative Negative Specific [place], POC 1.010 1.003 - 1.030 Blood, ur, POC Moderate(A) Negative pH, ur, POC 6.5 5.0 - 8.0 Protein, ur, POC Negative Negative Urobilinogen, urine, POC 0.2 0.2 - 1.0 mg/dL Nitrite, ur, POC Negative Negative Leukocytes, ur, POC Small(A) Negative Lot Number [id number] Urine 11/24/2024 3:16 PM CDT Camille Lloyd NP POINT OF CARE TEST ORDERAB LES Final Result * Vaginitis panel Vaginal (11/24/2024 12:00 PM CDT) Bacterial Vaginosis Not Detected Not Detected Comment:A negative result do es not preclude a possible infection. Results should be considered in conjunction with clinical presentation to determine the disease status. La group Not Detected Not Detected CERNER CH La glabrata/ krusei Not Detected Not Detected CERNER CH Trichomonas DNA Not Detected Not Detected CERNER Vaginal 11/24/2024 12:0 0 PM CDT 11/24/2024 8:41 PM CDT Narrative CERNER CH - 11/24/2024 10:02 PM CDT The CepThe Skilleryid Xpert Xpress MVP test detects DNA targets [...] test have been verified by the [facility]. Camille Lloyd NP LAB MICROBIOLOGY - GENERAL ORDERABLES Final Result ASHLEY [id number] [place] [address] CH * (ABNORMAL) Urine culture Urine, bladder [...] bacterial trevor. (.) Comment:Testing performed by : [facility], [address] [facility] [place]., [address] Organism STAPHYLOCOCCUS SAPROPHYTICUS ASHLEY MORGAN Organism PLUS GROWTH OF CLINICALLY INSIGNIFICANT TREVOR. ASHLEY MORGAN Urine, bladder 11/24/2024 12 :00 PM CDT 11/25/2024 1:57 AM CDT Narrative ASHLEY - 11/26/2024 5:51 AM CDT Testing performed by [facility]biology Laboratory ([phone]) Camille Lloyd NP LAB MICROBIOLOGY - GENERAL ORDERABLES Final Result [facility] [id number] [place] [address] * Electrocardiogram Report (09/19/2024 3:20 PM CDT) Art Stover MD ECG ORDERABLES Final Result * N. gonorrhoeae/C. trachomatis Amplification Urine (04/07/2022 9:48 PM CDT) C. trachomatis Not detected Not detected ASHLEY PUGA (AMY) Comment:Testing performed by : [address] [address] N. gonorrhoeae Not detected Not detected A[facility] (AMY) Comment: Testing performed by the [facility]. This assay detects Chlamydia trachomatis and Neisseria gonorrhoeae by nucleic acid amplification testing (NAAT). This test is approved by the [facility] Food and Drug Administration and the performance characteristics have been verified by the laboratory. The performance characteristics of this test have not been evaluated in women or individuals less than 16 years of age. Testing performed by: [address], [address] Urine (None) 04/07/2022 9:48 PM CDT 04/08/2022 10:13 AM CDT Isabel Hdez MD LAB MICROBIOLOGY - GENERAL ORDERABLES Final Result A[facility] (AMY) [address] [facility] Department [place] [address] from Last 3 Months or Most Recently Relevant to Health Maintenance Insurance [employer] [facility] Advance Directives For more information, please contact: [phone] * Full Code (Latest Code Status on File) Date Activated Date Inactivated Comments 06/04/2022 5:42 AM 06/06/2022 5:39 PM * Full Code Date Activated Date Inactivated Comments 06/04/2022 12:40 AM 06/04/2022 5:42 AM Full CPR in case of cardiopulmonary arrest Care Teams Timing Inspector Relationship Specialty Start Date End Date Chelsey High NP [address] [facility] [address] [place] [address] PCP - General Family Medicine 08/22/24 Sebastian Mcelroy MD [address] [place] [address] DR SONALI [address] [place] [address] Hand Paster Obstetrics and Gynecology 06/05/22
--- OUTSIDE RECORDS SUMMARY | 2024-12-06 16:57 | XMS_ITS | Encounter Summary ---
Author Organization [facility] Address [address] [place] [address] Phone Care Team Providers Care Skilled Helper Name Role Phone Kings Stanford MD Primary Care Provider [phone] Belkys Michele AUTOMOTIVE COLLISION REPAIR INSTRUCTOR Unavailable Unavailab Gaurav Ross MD Unavailable Unapeewee liu Reason for Visit * Reason Comments Medication Refill Encounter Details Date Type Department Care Team (Late st Contact Info) Description 04/04/2023 Refill [facility] - Family Medicine [facility] [address] [place] [address] Kings Stanford MD [address] [place] [address] Medication Refill Social History Tobacco Use Types [...] on file Sexual Orientation Not on file documented as of this encounter Miscellaneous Notes * Telephone Encounter - Alexa Palomino RN - 04/06/2023 8:43 AM CDT Medication failed the protocol, provider to review and approve the medication order if appropriate. Requested Prescriptions Pending Prescriptions Disp Refills busPIRone (BUSPAR) 10 MG Tablet [Pharmacy Med Name: BUSPIRONE HCL 10 MG TABLET] 180 Tablet 2 Sig: TAKE 2 TABLETS BY MOUTH 3 TIMES A DAY Buspirone (6 Month Refill Only) Protocol Failed - 04/04/2023 7:03 AM Failed - No test in the past 12 months or most recent test was negative Failed - Patient has established therapy with Buspirone for at least 6 months Passed - No active on record Passed - Visit with relevant provider in past 6 months or upcoming 90 days Recent Visits Date Type Provider Dept 02/06/23 Office Visit Kings Stanford MD [facility] 01/08/23 Office Visit Kings Stanford MD [facility] 12/15/22 Office Visit Di Philip APRN, [facility] Matos 11/20/22 Office Visit Kings Stanford MD [facility] Showing recent visits within past 182 days and meeting all other requirements Future Appointments Date Type Provider Dept 04/17/23 Appointment Kings Stanford MD [facility] Showing [...] with anxiety Behavioral Health No Teena Aj, STATE DIRECTOR Note: Goal/Objective: Improve coping with depression and related anxiety. Anticipated Time Frame for Goal Completion: 6 months Goal Reviewed with: patient Readiness to change: Ready to change Department associated with goal: [facility] Steps to [...] to vent. Behavioral Health Yes Teena Aj, STATE DIRECTOR Note: Goal/Objective: Reduce mood fluctuations and improve coping with them. Anticipated Time Frame for Goal Completion: 6 months Goal Reviewed with: patient Readiness to change: Ready to change Department associated with goal: [facility] Steps to [...] as of this encounter Visit Diagnoses Diagnosis Panic attacks Panic disorder without agoraphobia Depression with anxiety Dysthymic disorder documented in this encounter Additional Health Concerns Assessment Noted Time PHQ-9 Depression Total Score: 10 023 4:19 PM CDT documented as of this encounter Care Teams Skilled Helper Relationship Specialty Start Date End Date Kings Stanford MD [address] [place] [address] PCP - General Family Medicine 04/28/22 12/02/24 Belkys Michele LSW [facility] Tool Crib Clerk 01/07/23 04/26/23 Gaurav Marquez MD [facility] Consulting Physician Cardiovascular Disease - Cardiology 01/16/23 05/18/24 documented as of this encounter
--- OUTSIDE RECORDS SUMMARY | 2024-12-06 16:57 | XMS_ITS | Clinical Summary ---
Author Organization [facility] Address [address] [place] [address] Care Team Providers Care Diesel Mechanic Farm Name Role Phone None, Provider MD Primary Care Provider Unavaila ble Allergies No known active allergies Medications No known medications Active Problems Problem Noted Date Diagnosed Date Closed nondisplaced fracture of shaft of fifth metacarpal bone of right hand, initial encounter 08/08/2019 Family History Medical History Relation Comments No Known Problems Father Cancer Mother Relation Status Comments Father Alive Mother Alive Social History Tobacco Use Types Packs/Day Years Used Date Smoking Tobacco: Never Smokeless Tobacco: Never Alcohol Use Standard Drinks/Week Comments Not Currently 0 (1 standard drink = 0.6 oz pur e alcohol) Comments Unknown Sex and Gender Information Value Date Recorded Sex Assigned at Not on file Legal Sex Female 9:34 AM CDT Gender Identity Not on file Sexual Orientation Not on file Last Filed Vital Signs Vital Sign Reading Time Taken Comments Blood Pressure 126/81 02/16/2024 2:45 PM CDT Pulse 71 02/16/2024 2:45 PM CDT Temperature 36.8 C (98.2 F) 02/16/2024 1:34 PM CDT Respiratory Rate 16 02/16/2024 2:45 PM CDT Oxygen Saturation 100% 02/16/2024 2:45 PM CDT Inhaled Oxygen Concentration - - Weight 84.4 kg (186 lb) 02/16/2024 1:34 PM CDT Height 167.6 cm (5' 6) 02/16/2024 1:34 PM CDT Body Mass Index 30.02 02/16/2024 1:34 PM CDT Plan of Treatment Health Maintenance Due Date Last Done Comments Annual Physical 10/27/2006 HPV Vaccines (3 - 2-dose series) 09/22/2015 05/23/2015, 03/23/2015 Meningococcal B Vaccine (1 of 2 - Standard) 2019 Chlamydia Screening Females ages 16-24 04/07/2023 04/07/2022, 05/26/2019 COVID-19 Vaccine ( season) 2024 Cervical Cancer Screening Pap Smear (Age 21 to 29) Every 3 Years 04/07/2025 04/07/2022, 05/26/2019, 05/26/2019 Cervical Cancer Screening 04/07/2025 DTaP, Tdap and Td Vaccines (9 - Td or Tdap) 04/08/2032 04/08/2022, 02/28/2020, 03/23/2015, Additional history exists Hepatitis B Vaccines Completed 06/04/2005, 01/02/2004, 2003 Pneumococcal Vaccine: Pediatrics (0 to 5 Years) and At-Risk Patients (6 to 49 Years) Completed 06/04/2005, 08/09/2004, 05/29/2004, Additional history exists Meningococcal Vaccine Aged Out 03/23/2015, 015 No longer eligible based on patient's age to complete this topic Hepatitis C Completed 05/22/2022 RSV Immunizations Under 20 Months Aged Out No longer eligible based on patient's age to complete this topic Insurance [facility] Care Teams Diesel Mechanic Farm Relationship Specialty Start Date End Date None, Provider, PCP - General UNKNOWN PHYSICIAN SPECIALTY 02/16/24
--- OUTSIDE RECORDS SUMMARY | 2024-12-06 16:57 | XMS_ITS | Clinical Summary ---
Author Organization [facility] Address [address] [place] [address] Phone Care Team Providers Care Box Car Checker Name Role Phone Unavailable Primary Care Provider Unavailabl e Allergies No known active allergies Medications acetaminophen (TYLENOL) 325 MG Tablet Take 2 Tablets by mouth every 6 hours as needed for Mild or more severe pain. 01/01/2024 Active HYDROmorphone (Dilaudid) 2 MG TabletIndicatio ns:Dental abscess Take 1 Tablet by mouth every 6 hours as needed for Severe pain. 20 Tablet 01/01/2024 Active Active Problems Problem Noted Date Diagnosed Date Dental abscess 12/30/2023 Borderline personality disorder 09/26/2022 Immunizations Immunization Administration Dates Next Due DTAP VACCINE 02/11/2008, 5,08/09/2004,05/29,01/02/2004 HEP B/HIB Combined Vaccine 01/02/2004 Hepatitis A Vaccine, Pediatric/adolescent, 2 Dose Schedule 07/11/2013,02/16/2012 Hepatitis B Vaccine, Pediatric/adolescent 06/04/2005,2003 Hib Vaccine,unspecified Formulation 06/04/2005,1 2003 Human Papillomavirus (HPV) 9 -valent Vaccine 05/23/2015,03/23/2015 Inactivated Polio Vaccine 02/11/2008,09/2004,05/29/2004,01/01 Influenza Vaccine 06/21/2012 Influenza Vaccine, Quadrivalent, PF 02/28/2020,1 ,07/11/2013 Influenza Vaccine,unspecifie d Formulation 04/01/2007 Influenza, Seasonal, Injecta ble, Undefined 04/15/2011 MMR Vaccine 02/11/2008,06/04/2005 Meningococcal B, Unspecified Formulation 03/23/2015 Meningococcal Vaccine 03/23/2015 Pneumococcal Vaccine - 13 Valent 03/04/2004 Pneumococcal Vaccine Peds - 7 Valent ,08/09/2004,05/29/2004,01/01 TDAP Vaccine 04/08/2022,02/28/2020,03/23/2015 Varicella Vaccine Live 06/06/2022,02/11/2008, Family History Medical History Relation Name Comments No Known Problems Brother No Known Problems Father No Known Problems Mother No Known Problems Sister 1 No Known Problems Sister 2 Relation Name Status Comments Brother Alive Father Alive Mother Alive Sister 1 Alive Sister 2 Alive Social History Tobacco Use Types Packs/Day Years Used Date Smoking Tobacco: Former Cigarettes 2019 Smokeless Tobacco: Never Tobacco Cessation:Counseling Given: Not Answered Alcohol Use Standard Drinks/Week Comments Yes 0 (1 standard drink = 0.6 oz pur e alcohol) Occasionally [employer] Utilities Answer Date Recorded In the past 12 months has [employer], gas, oil, or water [employer] threatened to shut off services in your home? No 12/30/2023 Social Connection and Isolation Panel Answer Date Recorded In a typical week, how many times do you talk on the phone with family, friends, or neighbors? Once a week 12/30/2023 How often do you get togethe r with friends or relatives? More than three times a week 12/30/2023 How often do you attend chur ch or alevism services? Never 12/30/2023 Do you belong to any clubs o r organizations such as religion groups, unions, fraternal or athletic groups, or school groups? No 12/30/2023 How often do you attend meet ings of the clubs or organizations you belong to? Never 12/30/2023 Are you , , di vorced, , never , or living with a partner? 12/30/2023 AUDIT-C Answer Date Recorded Q1: How often do you have a drink containing alc ohol? Monthly or less 12/30/2023 Q2: How many drinks containi ng alcohol do you have on a typical day when you are drinking? 1 or 2 12/30/2023 Q3: How often do you have si x or more drinks on one occasion? Never 12/30/2023 Overall Financial Resource Strain (CARDIA) Answe r Date Recorded How hard is it for you to pa y for the very basics like food, housing, medical care, and heating? Very hard 12/30/2023 PHQ-2 Answer Date Recorded Total Score - Questions 1-9 10 07/2022 [facility] [place] [facility] Occupat ional Health - Occupational Stress Questionnaire Answer Date Recorded Do you feel stress - tense, restless, nervous, or anxious, or unable to sleep at night because your mind is troubled all the time - these days? Rather much 12/30/2023 Exercise Vital Sign Answer Date Recorde d On average, how many days pe r week do you engage in moderate to strenuous exercise (like a brisk walk)? 0 days 12/30/2023 On average, how many minutes do you engage in exercise at this level? 0 min 12/30/2023 Hunger Vital Sign Answer Date Recorded Within the past 12 months, y ou worried that your food would run out before you got the money to buy more. Never true 12/30/19 Within the past 12 months, t he food you bought just didn't last and you didn't have money to get more. Never true 12/30/2023 PRAPARE - Transportation Answer Date Re corded In the past 12 months, has l ack of transportation kept you from medical appointments or from getting medications? No 12/07 In the past 12 months, has l ack of transportation kept you from meetings, work, or from getting things needed for daily living? No 12/30/2023 Housing Stability Vital Sign Answer Wilder e Recorded In the last 12 months, was t here a time when you were not able to pay the mortgage or rent on time? Yes 12/30/2023 In the past 12 months, how m any times have you moved where you were living? 2 12/30/2023 At any time in the past 12 m [facility], were you homeless or living in a skilled nursing (including now)? No 12/30/2023 Comments Unknown Sex and Gender Information Value Date Recorded Sex Assigned at Not on file Legal Sex Female 10:28 AM CDT Gender Identity Not on file Sexual Orientation Not on file Last Filed Vital Signs Vital Sign Reading Time Taken Comments Blood Pressure 114/74 01/01/2024 4:15 PM CDT Pulse 65 01/01/2024 4:15 PM CDT Temperature 36.2 C (97.2 F) 01/01/2024 4:15 PM CDT Respiratory Rate 16 01/01/2024 4:15 PM CDT Oxygen Saturation 96% 01/01/2024 4:15 PM CDT Inhaled Oxygen Concentration - - Weight 92.2 kg (203 lb 4.8 oz) 12/30/2023 1:49 A M CDT Height 167.6 cm (5' 6) 12/30/2023 1:49 AM CDT Body Mass Index 32.81 12/30/2023 1:49 AM CDT Plan of Treatment Health Maintenance Due Date Last Done Comments Human Papillomavirus (HPV) Immunization (3 - 2-dose series) 09/22/2015 05/23/2015, 03/23/2015 Meningococcal B Immunization (1 of 2 - Standard) 2019 03/23/2015 SARS-COV-2 Immunization ( - season) 2024 Pap Smear 10/27/2024 Influenza Immunization (Season Ended) 2025 02/28/2020, 03/23/2015, 07/11/2013, Additional history exists DTaP/Tdap/Td Immunization (9 - Td or Tdap) 04/08/2032 04/08/2022, 02/28/2020, 03/23/2015, Additional history exists Respiratory Syncytial Virus (RSV) Immunization (Adult) (1 - 1-dose 75+ series) 10/27/2078 Hepatitis B Immunization Completed 005, 01/02/2004, 2003 Pneumococcal Immunization Combined Completed 06/04/2005, 08/09/2004, 05/29/2004, Additional history exists Measles Mumps Rubella (MMR) Immunization Discontinued 02/11/2008, 06/04/2005 Polio (IPV) Immunization Discontinued 008, 08/09/2004, 05/29/2004, Additional history exists Hepatitis A Immunization Discontinued 07/11/2013, 02/06 Meningococcal Immunization (ACWY) Aged Out 03/23/2015 No longer eligible based on patient's age to complete this topic Hepatitis C Virus (HCV) Screening Completed 05/22/2022 Varicella Immunization Discontinued 2, 02/11/2008, 06/04/2005 Rotavirus Immunization Aged Out No lo nger eligible based on patient's age to complete this topic Goals Goal Patient Goal Type Associated Problems Recent Progress Patient-Stated? Author Depression with anxiety Behavioral Health No Teena Aj LCSW Note: Goal/Objective: Improve coping with depression and related anxiety. Anticipated Time Frame for Goal Completion: 6 months Goal Reviewed with: patient Readiness to change: Ready to change Department associated with goal: [facility] Steps to achieve [...] Ready to change Department associated with goal: [facility] Steps to achieve [...] to use when a triggering event occurs Procedures Procedure Name Priority Date/Time Associated Diagnosis Comments HEPATITIS PANEL ACUTE (AHP) Routine 05/22/2022 3:01 PM DIFFUSER OPERATOR Chronic midline low back pain without sciatica from Last 3 Months or Most Recently Relevant to Health Maintenance Results * HEPATITIS PANEL ACUTE (AHP) (05/22/2022 3:01 PM DIFFUSER OPERATOR) HEPATITIS A IGM ANTIBODY NON DETECTED NON DETECTED [place] [id number] B 05/22/2022 9:20 PM DIFFUSER OPERATOR [facility] Comment: IGM Antibodies to HAV not detected. Does not exclude early acute or recovered HAV infection. HEP B CORE AB (IGM) NON DETECTED NON DETECTED [address] 05/22/2022 9:20 PM DIFFUSER OPERATOR [facility] Comment:IGM anti-HBC not det ected. Does not exclude the possibility of exposure to or infection with HBV. HEPATITIS B SURFACE ANTIGEN NON DETECTED NON DETECTED [address] 05/22/2022 9:20 PM DIFFUSER OPERATOR [facility] Comment:A nonreactive test r esult does not exclude the possibility of exposure to or infection with Hepatitis B virus. A nonreactive test result in individuals with prior exposure to hepatitis B may be due to antigen levels below the detection limit of this assay or lack of antigen reactivity to the antibodies in this assay. hepatitis C antibody 0.16 <1 S/CO [address] 05/22/2022 9:20 PM DIFFUSER OPERATOR [facility] Comment: Signal/Cutoff ratio < 0.79 is Nondetected Signal/Cutoff ratio 0.80-0.99 is Grayzone Signal/Cutoff ratio > 0.99 is Detected Supplemental assays are recommended if signal/cutoff ratio is >/=1.00. Signal/cutoff ratio result >/= 5.00 is 97% predictive of positivity for recombinant immunoblot assay (RIBA) and will be reported to the [place] Department of Public [facility] as required. Blood Venipuncture / Unknown 05/22/2022 3:01 PM DIFFUSER OPERATOR 05/22/2022 3:31 PM DIFFUSER OPERATOR us Kings Stanford MD HEMATOLOGY ORDERABLES Final Resu lt [facility] [address] [place] [place] [address], [place] from Last 3 Months or Most Recently Relevant to Health Maintenance Insurance MEDICAID [employer] MEDICAID A[employer]NA [facility] Advance Directives * Full Code (Latest Code Status on File) Date Activated Date Inactivated Comments 12/30/2023 2:32 AM CPR-Full Treat ment: FULL ARREST: Attempt Resuscitation/CPR wit intubation and mechanical ventilation. PRE-ARREST: Use entire range of life support measures to stabilize the patient.
--- OUTSIDE RECORDS SUMMARY | 2024-12-06 16:57 | XMS_ITS | Clinical Summary ---
Author Organization [facility] Address [address] [place] [address] Care Team Providers Care Supervisor Cell Room Name Role Phone Radha Jose MD Primary Care Provider [phone] Source Comments [facility],non-owned Affiliates and Associated Physician Practices is amultiple site organization consisting of ambulatory clinics and hospital sitesin [place], [place], [place] and [place]. This disclosure is being madepursuant to the Care Everywhere program and may not contain all information available regarding this patient. Last updated 18.[facility] Allergies No known active allergies Medications * This document contains information received from the source organization and may not represent a complete record from that organization. * Be aware that medications may not be up to date on this document. Alwaysverify current medications with the patient. MONO-LINYAH 0.25-35 MG-MCG tablet 05/18/2019 Active FLUoxetine (PROZAC) 20 MG tablet Take 20 mg by mouth once daily 05/18/2019 Active vitamin D, ergocalciferol, (DRISDOL) 1.25 MG (51149 UT) capsule TAKE 1 CAPSULE BY MOUTH WEEKLY FOR 8 WEEKS 05/18/2019 Active Active Problems Problem Noted Date Diagnosed Date Encounter for anatomic survey 12/19/2019 Overview (12/19/2019): Nonspecific structure along wall of uterus/incomplete anatomy (Di/Di twins until Demise baby B on 10/17/19) Left leg pain 08/01/2016 Nevus 06/13/2015 Overview (06/13/2015): Normal number of nevi per age; one lesion in R axilla pedunculated and irritated (nevus vs acrochordon vs verrucous) 06/13/15: shave removal Family History Medical History Relation Name Comments Substance Dependence Father heroin addict per patient Birthmarks Maternal Aunt Cancer - Other Maternal Aunt ovarian Miscarriage Maternal Aunt 9 tubal pregna ncies Acne Maternal Grandfather Allergies Maternal Grandfather Blood Clots Maternal Grandfather Heart Disease Maternal Grandfather 5 6 Acne Maternal Grandmother Cancer - Other Maternal Grandmother cervi kevin Diabetes - Type 2 Maternal Grandmother Miscarriage Maternal Grandmother Other - Cardiac Maternal Uncle MVP Acne Mother Allergies Mother Cancer - Other Mother cervical Miscarriage Mother Other - Archeology Faculty Member Paternal Aunt endometriosis Cancer - Skin, Melanoma Paternal Grandfather Cancer - Other Paternal Uncle lymphoma Birthmarks Sister Anesthesia Reaction Neg Hx Bleeding Disorders Neg Hx Childhood Hearing Disorder Neg Hx Relation Name Status Comments Father Maternal Aunt Maternal Grandfather Maternal Grandmother Maternal Uncle Mother Paternal Aunt Paternal Grandfather Paternal Uncle Sister Social History Tobacco Use Types Packs/Day Years Used Date Smoking Tobacco: Never Smokeless Tobacco: Never Alcohol Use Standard Drinks/Week Comments No 0 (1 standard drink = 0.6 oz pur e alcohol) Comments No Sex and Gender Information Value Date Recorded Sex Assigned at Not on file Legal Sex Female 12:00 PM CDT Gender Identity Not on file Sexual Orientation Not on file Last Filed Vital Signs Vital Sign Reading Time Taken Comments Blood Pressure 108/60 02/04/2015 8:47 PM CDT Pulse 76 02/04/2015 10:15 PM CDT Temperature 36.2 C (97.2 F) 01/20/2020 11:29 AM CDT Respiratory Rate 16 02/04/2015 10:1 5 PM CDT Oxygen Saturation 99% 11/24/2014 1:00 PM CDT Inhaled Oxygen Concentration - - Weight 75.7 kg (166 lb 14.2 oz) 08/01/2016 9:22 AM COURIER DELIVERY DRIVER Height 165 cm (5' 4.96) 08/01/2016 9:22 AM COURIER DELIVERY DRIVER Body Mass Index 27.8 08/01/2016 9:22 AM COURIER DELIVERY DRIVER Plan of Treatment Health Maintenance Due Date Last Done Comments HPV VACCINE (1 - 3-dose series) 10/27/2018 MENINGOCOCCAL (Group B) VACC INE SHARED DECISION-MAKING (1 of 2 - Standard) 2019 CHLAMYDIA/GONORRHEA SCREENING 05/26/2020 05/26/2019 HEPATITIS C SCREENING 10/23/2021 DTAP/TDAP/TD VACCINES (1 - Tdap) 10/27/2022 HEPATITIS B VACCINE (1 of 3 - 19+ 3-dose series) 10/27/2022 COVID-19 VACCINE (1 - 2023-2 5 season) 2024 DEPRESSION SCREENING 06/08/2024 PAP SMEAR 10/27/2024 INFLUENZA VACCINE (Season Ended) 2025 ZOSTER VACCINE (1 of 2) 10/27/2053 HIV SCREENING Completed 04/12/2019 HIB VACCINE Aged Out No longer eligi ble based on patient's age to complete this topic MENINGOCOCCAL GROUPS A/C/Y/W VACCINE Aged Out No longer eligible b ased on patient's age to complete this topic PNEUMOCOCCAL VACCINE Aged Out No long er eligible based on patient's age to complete this topic Procedures Procedure Name Priority Date/Time Associated Diagnosis Comments CHLAMYDIA + GC AMPLIFIED PROBE Routine 05/26/2019 4:22 PM COURIER DELIVERY DRIVER Screening for STD (sexually transmitted disease) from Last 3 Months or Most Recently Relevant to Health Maintenance Results * CHLAMYDIA + GC AMPLIFIED PROBE (STL) (05/26/2019 4:22 PM COURIER DELIVERY DRIVER) Chlamydia Amplified Probe Negative Negative 05/27/2019 10:16 AM COURIER DELIVERY DRIVER [facility] GC Amplified Probe Negative Negative 05/27/2019 10:16 AM COURIER DELIVERY DRIVER [facility] Microbiology URINE / Unknown Collection / Unknown 05/26/2019 4:22 PM COURIER DELIVERY DRIVER 05/26/2019 4:18 PM COURIER DELIVERY DRIVER Narrative [facility] - 05/27/2019 10:16 AM COURIER DELIVERY DRIVER Results based on detection/no detection of ribosomal RNA by amplified method. us Daisy Macario MD LAB - MICROBIOLOGY ORD ERABLES Final Result [facility] [address] [place] [address], [facility] [phone] from Last 3 Months or Most Recently Relevant to Health Maintenance Insurance [facility] MEDICAID - [facility] [place] [address] HEALTH PLAN MEDICAID - [place] [employer] HEALTH PLAN [facility] Care Address: [address] [address] [place] [address] [facility] - OUT OF STATE [facility] MEDICAID - OUT OF STATE Care Teams Supervisor Cell Room Relationship Specialty Start Date End Date Radha Jose MD [address] [place] [id number] PCP - General Pediatrics 05/03/19
--- OUTSIDE RECORDS SUMMARY | 2024-12-06 16:57 | XMS_ITS | Encounter Summary ---
Author Organization [facility] Address [address] [place] [address] Phone Care Team Providers Care Clinical Quality Manager Name Role Phone Kings Stanford MD Primary Care Provider [phone] Belkys Michele BLOOMING MILL SUPERVISOR Unavailable Unavailab Gaurav Ross MD Unavailable Unapeewee liu Reason for Visit * Reason Onset Date Comments Referral 02/19/2023 RE:EXTERNAL GYNE COLOGY REFERRAL Encounter Details Date Type Department Care Team (Late st Contact Info) Description 02/19/2023 Telephone [facility] [address] [place] [address] Kings Stanford MD [address] [place] [address] Referral (RE:EXTERNAL GYNECOLOGY REFERRAL) Social History Tobacco Use Types Packs/Day Years [...] suspected to have Coronavirus/COVID-19? No / Unsure 02/06/2023 8:02 AM CDT documented as of this encounter Miscellaneous Notes * Telephone Encounter - Salome Seals - 02/19/2023 8:58 AM CDT SITUATION: Patient requesting provider review Gynecology Referral. BACKGROUND: Referral unable to be processed. ASSESSMENT: Request for provider review due to the following reason(s): Patient refusal or unable to contact patient. and Spoke with Jami at regarding Gynecology referral order. and she states that referral is no longer needed as the referral was supposed to be ordered for OB and not Gynecology. RECOMMENDATION: Based on the above information the provider has the following option(s): Cancel existing referral. Salome Seals [facility] 02/19/2023, 8:59 AM CDT documented in this encounter Plan of Treatment [...] Ready to change Department associated with goal: [facility] Steps to [...] Ready to change Department associated with goal: [facility] Steps to [...] documented as of this encounter Care Teams Clinical Quality Manager Relationship Specialty Start Date End Date Kings Stanford MD [address] [place] [address] PCP - General Family Medicine 04/28/22 12/02/24 Belkys Michele LSW [place] Family And Divorce Legal Assistant 01/07/23 04/26/23 Gaurav Marquez MD [place] Consulting Physician Cardiovascular Disease - Cardiology 01/16/23 05/18/24 documented as of this encounter
--- OUTSIDE RECORDS SUMMARY | 2024-12-06 16:57 | XMS_ITS | Encounter Summary ---
Author Organization [facility] Address [address] [place] [address] Phone Care Team Providers Care Offset Press Operator Helper Name Role Phone Kings Stanford MD Primary Care Provider [phone] Belkys Michele Unavailable Unavailab Gaurav Ross MD Unavailable Unapeewee liu Reason for Visit * Reason Comments Medication Refill Encounter Details Date Type Department Care Team (Late st Contact Info) Description 11/09/2022 [facility] [address] [place] [address] Sonali Dow, DIVISIONAL HUMAN RESOURCES DIRECTOR, ART PSYCHOTHERAPIST OR THERAPIST [address] [place] [address] Medication Refill Social History Tobacco Use Types [...] Telephone Encounter - Alexa Palomino RN - 11/10/2022 12:09 PM CDT Medication failed the protocol, provider to review and approve the medication order if appropriate. Requested Prescriptions Pending Prescriptions Disp Refills buPROPion (WELLBUTRIN) 150 MG XL tablet [Pharmacy Med Name: BUPROPION HCL XL 150 MG TABLET] 30 Tablet 2 Sig: TAKE 1 TABLET BY MOUTH EVERY DAY IN THE MORNING Bupropion (6 Month Refill Only) Protocol Failed - 11/09/2022 7:07 AM Failed - Patient has established therapy with Bupropion for at least 6 months Passed - No test in the past 12 months or most recent test was negative Passed - No active on record Passed - Visit with relevant provider in past 6 months or upcoming 90 days Recent Visits Date Type Provider Dept 09/08/22 Office Visit Sonali Dow APRN, [facility] 07/28/22 Office Visit Kings Stanford MD [facility] 05/22/22 Office Visit Kings Stanford MD [facility] Showing recent visits within past 182 days [...] with anxiety Behavioral Health No Teena Aj, FIELD SUPERINTENDENT Note: Goal/Objective: Improve coping with depression and [...] to vent. Behavioral Health Yes Teena Aj, FIELD SUPERINTENDENT Note: Goal/Objective: Reduce mood fluctuations and improve [...] documented as of this encounter Care Teams Offset Press Operator Helper Relationship Specialty Start Date End Date Kings Stanford MD [address] [place] [address] PCP - General Family Medicine 04/28/22 12/02/24 Belkys Michele LSW [place] Professional Skateboarder 01/07/23 04/26/23 Gaurav Marquez MD [place] Consulting Physician Cardiovascular Disease - Cardiology 01/16/23 05/18/24 documented as of this encounter
--- OUTSIDE RECORDS SUMMARY | 2024-12-06 16:57 | XMS_ITS | Encounter Summary ---
Author Organization [facility] Address [address] [place] [address] Phone Care Team Providers Care Minister Of Religion Name Role Phone Kings Stanford MD Primary Care Provider [phone] Belkys Michele Unavailable Unavailab Gaurav Ross MD Unavailable [place] liu Reason for Visit * Reason Comments Medication Refill Encounter Details Date Type Department Care Team (Late st Contact Info) Description 09/22/2022 Refill [facility] - Family Medicine - [place] [address] [place] [address] Di Philip APRN, RENEWABLE ENERGY ENGINEER [address] [address] Medication Refill Social History Tobacco Use Types [...] suspected to have Coronavirus/COVID-19? No / Unsure 09/08/2022 2:31 PM CDT documented as of this encounter Miscellaneous Notes * Telephone Encounter - Nirali Whittaker RN - 09/22/2022 12:47 PM CDT Medication failed the protocol, provider to review and approve the medication order if appropriate. Requested Prescriptions Pending Prescriptions Disp Refills escitalopram (LEXAPRO) 20 MG Tablet [Pharmacy Med Name: ESCITALOPRAM 20 MG TABLET] 30 Tablet 0 Sig: TAKE 1 TABLET BY MOUTH EVERY DAY SSRI (6 Month Refill Only) Protocol Failed - 09/22/2022 12:04 AM Failed - Patient has established therapy with SSRI for at least 6 months Passed - No test in the past 12 months or most recent test was negative Passed - No active on record Passed - Visit with relevant provider in past 6 months or upcoming 90 days Recent Visits Date Type Provider Dept 09/08/22 Office Visit Sonali Dow APRN, [facility] 07/28/22 Office Visit Kings Stanford MD [facility] 05/22/22 Office Visit Kings Stanford MD [facility] Showing recent visits within past 182 days and meeting all other requirements Future Appointments Date Type Provider Dept 10/06/22 Appointment Sonali Dow APRN, [facility] Showing future appointments within next 90 [...] Assessment Noted Time PHQ-9 Depression Total Score: 27 07/29/ 023 7:00 AM RECOVERY MANAGER documented as of this encounter Care Teams Minister Of Religion Relationship Specialty Start Date End Date Kings Stanford MD [address] [place] [address] PCP - General Family Medicine 04/28/22 12/02/24 Belkys Michele LSW [place] In Service Education Teacher 01/07/23 04/26/23 Gaurav Marquez MD MD Consulting Physician Cardiovascular Disease - Cardiology 01/16/23 05/18/24 documented as of this encounter
--- NOTE | 2024-12-06 18:18 | ED_ITS ---
HPI - Nausea/Vomiting/Diarrhea General Chief complaint: Nausea/Vomiting/Diarrhea Stated complaint: 7 weeks preg, N/V Time Seen by Provider: 12/06/24 17:42 Source: patient Mode of arrival: ambulatory Limitations: no limitations History of Present Illness HPI Narrative: This is a 19 year old female that presents to the ER for nausea and vomiting ongoing over the last couple of weeks. Reports history of hyperemesis gravidarum. Reports she believes she is about 7 weeks . She has not seen an OB or had an ultrasound yet this . Reports she feels very dehydrated. Presents for further management. Denies vaginal bleeding. Related Data Allergies Allergy/AdvReac Type Severity Reaction Status Date / Time No Known Allergies Allergy Unknown Verified 12/06/24 17:04 Review of Systems 2 Review of Systems: All systems reviewed & are unremarkable except as noted in HPI and below PMFSH Past Medical History Medical History Missed x4 Asthma Anxiety Depression High cholesterol PCOD (polycystic ovarian disease) Endometriosis Surgical History Surgical History History of tonsillectomy and adenoidectomy Family History Family History Grandparent Colon cancer Diabetes mellitus Acute myocardial infarction Mother Polycystic ovary Endometriosis Social History Social History (Updated 06/30/24 @ 14:01 by Seda Mercado CMA) Smoking status: Never smoker Second hand tobacco smoke exposure: No Alcohol intake: current Substance use: current Substance use type: marijuana Last use: DAILY Do You Feel Safe in your Home?: Yes Lack of Transportation: YES Lack of Food: Sometimes True Current Housing: I Have Housing Concerned About Future Housing: No Difficulty Paying Gas/Electric Bills: No Difficulty Paying for Meds: No Currently Unemployed: Decline to Answer Education: Decline to Answer Difficulty w/ Childcare or Family Care: No Living arrangements: with family Gender identity (if verbalized by the patient): Female Spiritual care concerns: No Exam 2 Narrative: GENERAL: Well-appearing, well-nourished, and in no acute distress. HEAD: Normocephalic, atraumatic. EYES: EOMI. CHEST: Clear to auscultation. No respiratory distress. No wheezes rales or rhonchi HEART: Regular rate and rhythm. No murmur heard. Normal peripheral pulses. ABDOMEN: Soft, nontender, nondistended, normal active bowel sounds. EXTREMITIES: Normal range of motion. No edema. SKIN: Warm, dry, no rash. NEURO: No focal deficits. Alert and oriented x3. PSYCH: Normal mood and affect Course Course Emergency Course: patient resting comfortably. Tolerated PO challenge Vital Signs Vital signs: Vital Signs Temperature 97.6 F 12/06/24 16:57 Pulse Rate 72 12/06/24 16:57 Respiratory Rate 16 12/06/24 16:57 Blood Pressure 124/79 12/06/24 16:57 Pulse Oximetry 100 12/06/24 16:57 Oxygen Delivery Room Air 12/06/24 16:57 Temperature 97.6 F 12/06/24 16:57 Pulse Rate 80 12/06/24 22:07 Respiratory Rate 16 12/06/24 22:07 Blood Pressure 132/74 12/06/24 22:07 Pulse Oximetry 99 12/06/24 22:07 Oxygen Delivery Room Air 12/06/24 16:57 MDM - Nausea/Vomiting/Diarrhea MDM Narrative Medical decision making narrative: Patient presents emergency department for nausea vomiting in early . Reports history of hyperemesis gravidarum. Reports she is currently about 7 weeks . She is afebrile and nontoxic appearing. Her vitals are stable. CBC with mild leukocytosis to 11.8. Metabolic panel with evidence of dehydration. Urine also with evidence of dehydration, possible evidence of infection. Patient was hydrated with 2 L of IV fluids, repeat metabolic panel with improvement. She is resting comfortably. Tolerating PO challenge. Pelvic ultrasound shows single living intrauterine fetus. Patient was updated on her workup and agrees with plan of care. She is to follow up with her OB. She was given warnings to return to the ER Differential Diagnosis Differential diagnosis: Likely drug-induced nausea and vomiting, dehydration and other (nausea and vomiting in , UTI) Lab Data Attestation: I reviewed the patient's lab results. 12/06/24 18:15 12/06/24 21:36 Labs: Lab Results 12/06/24 12/06/24 12/06/24 Range/Units 18:15 20:05 20:06 WBC 11.8 H (4.5-10.0) K/mm3 RBC 4.79 (4.2-5.4) M/mm3 Hgb 13.5 D (12.0-15.0) g/dL Hct 41.1 (37.0-47.0) % MCV 85.8 (80-100) fl MCH 28.2 (26-34) pg MCHC 32.8 (32-36) g/dl RDW 13.4 (11.5-14.5) % Plt Count 239 (150-375) k/mm3 MPV 10.3 (7.4-10.4) fl Immature Gran % (Auto) 0.4 (0-0.5) % Neut % (Auto) 88.9 H (45.5-73.1) % Lymph % (Auto) 6.3 L (18.3-44.2) % Grayson % (Auto) 4.1 (2.6-8.5) % Eos % (Auto) 0.2 (0-4.4) % Baso % (Auto) 0.1 L (0.2-1.2) % Lymph # (Auto) 0.74 L (0.9-3.2) K/mm3 Grayson # (Auto) 0.5 (0.1-0.6) K/mm3 Eos # (Auto) 0.0 (0-0.3) K/mm3 Baso # (Auto) 0.0 (0.0-0.1) K/mm3 Abs Immat Gran (auto) 0.05 H (0.00-0.031) K/mm3 Absolute Neuts (auto) 10.5 H (1.3-6.7) K/mm3 Absolute Nucleated RBC 0.000 (0.0-0.012) K/mm3 Nucleated RBC % 0.0 (0.0-0.2) % Sodium 137 (137-145) mmol/L Potassium 3.7 (3.4-5.0) mmol/L Chloride 103 (98-107) mmol/L Carbon Dioxide 20 L (22-30) mmol/L Anion Gap 14 H (4-12) mmol/L BUN 13 D (7-17) mg/dL Creatinine 0.55 L (0.7-1.0) mg/dL Estim Creat Clear Calc 158 ml/min Estimated GFR > 60 (59 - ) Glucose 98 (65-110) mg/dL Calcium 9.9 (8.4-10.2) mg/dL Total Bilirubin 0.9 (0.2-1.3) mg/dL AST 27 (14-36) U/L ALT 21 (6-35) U/L Alkaline Phosphatase 62 (38-126) U/L Total Protein 8.2 (6.3-8.2) g/dL Albumin 5.0 (3.5-5.1) g/dL Beta HCG, Quant 390449.00 mIU/ML Urine Color Yellow (Yellow) Urine Appearance Cloudy H (Clear) Urine pH 5.5 (5.0-9.0) Ur Specific Hendricks 1.036 H (1.001-1.035) Urine Protein 1+ H (Negative) mg/dL Urine Glucose (UA) Negative (Negative) mg/dL Urine Ketones 4+ H (Negative) mg/dL Ur Blood (Man) Negative (Negative) Urine Nitrate Negative (Negative) Urine Bilirubin Negative (Negative) Urine Urobilinogen 1.0 (<2.0) mg/dL Leukocyte Esterase Rfl 1+ H (Negative) REGGIE/UL Urine RBC 0-2 (0-2) /hpf Urine WBC 21-50 H (0-3) /hpf Ur Squamous Epith Cells Few (Few) /hpf Urine Bacteria 1+ H /hpf Urine Casts 3-5 POC Urine HCG, Qual Positive (Negative) 12/06/24 Range/Units 21:36 WBC (4.5-10.0) K/mm3 RBC (4.2-5.4) M/mm3 Hgb (12.0-15.0) g/dL Hct (37.0-47.0) % MCV (80-100) fl MCH (26-34) pg MCHC (32-36) g/dl RDW (11.5-14.5) % Plt Count (150-375) k/mm3 MPV (7.4-10.4) fl Immature Gran % (Auto) (0-0.5) % Neut % (Auto) (45.5-73.1) % Lymph % (Auto) (18.3-44.2) % Grayson % (Auto) (2.6-8.5) % Eos % (Auto) (0-4.4) % Baso % (Auto) (0.2-1.2) % Lymph # (Auto) (0.9-3.2) K/mm3 Grayson # (Auto) (0.1-0.6) K/mm3 Eos # (Auto) (0-0.3) K/mm3 Baso # (Auto) (0.0-0.1) K/mm3 Abs Immat Gran (auto) (0.00-0.031) K/mm3 Absolute Neuts (auto) (1.3-6.7) K/mm3 Absolute Nucleated RBC (0.0-0.012) K/mm3 Nucleated RBC % (0.0-0.2) % Sodium 137 (137-145) mmol/L Potassium 3.8 (3.4-5.0) mmol/L Chloride 106 (98-107) mmol/L Carbon Dioxide 22 (22-30) mmol/L Anion Gap 9 (4-12) mmol/L BUN 11 (7-17) mg/dL Creatinine 0.49 L (0.7-1.0) mg/dL Estim Creat Clear Calc 176 ml/min Estimated GFR > 60 (59 - ) Glucose 88 (65-110) mg/dL Calcium 9.2 (8.4-10.2) mg/dL Total Bilirubin (0.2-1.3) mg/dL AST (14-36) U/L ALT (6-35) U/L Alkaline Phosphatase (38-126) U/L Total Protein (6.3-8.2) g/dL Albumin (3.5-5.1) g/dL Beta HCG, Quant mIU/ML Urine Color (Yellow) Urine Appearance (Clear) Urine pH (5.0-9.0) Ur Specific Hendricks (1.001-1.035) Urine Protein (Negative) mg/dL Urine Glucose (UA) (Negative) mg/dL Urine Ketones (Negative) mg/dL Ur Blood (Man) (Negative) Urine Nitrate (Negative) Urine Bilirubin (Negative) Urine Urobilinogen (<2.0) mg/dL Leukocyte Esterase Rfl (Negative) REGGIE/UL Urine RBC (0-2) /hpf Urine WBC (0-3) /hpf Ur Squamous Epith Cells (Few) /hpf Urine Bacteria /hpf Urine Casts POC Urine HCG, Qual (Negative) Imaging Data Radiologist's impression: ITS Impressions Ultrasound 12/06/24 20:23 IMPRESSION: Intrauterine Single live fetus of 7 weeks and 5 days. BRADEN is July 20, 2025 Critical Care Time Critical Care Time Critical Care Time: No Discharge Plan Discharge Clinical Impression: Nausea and vomiting during , Acute dehydration, Acute UTI Patient Disposition: Home Condition: Improved Instructions: Antibiotic Form, Nausea and Vomiting in (ED), Urinary Tract Infection in (ED) Additional Instructions: Return to the ER if you experience fever, chest pain, shortness of breath, abdominal pain with nausea and vomiting, you are unable to keep down liquids or solids, pelvic cramping, vaginal bleeding, or any other symptoms that are concerning to you Take a Vitamin B6 and Unisom (25mg tab) nightly. You can get these medications over the counter. This will help prevent nausea. Reglan as needed for nausea. Small, frequent meals. [place] diet. Remain well hydrated Follow up with your OB Patient Language: Malay Prescriptions: New metoclopramide HCl 5 mg tablet 5 mg PO Q6H Qty: 14 0RF nitrofurantoin monohyd/m-cryst [Macrobid] 100 mg capsule 100 mg PO Q12H 5 Days Qty: 10 0RF Rx Instructions: must administer with a meal/food No Action hydrocodone-acetaminophen 5-325 mg tablet 1 tablet PO Q6H PRN (Reason: pain) Qty: 20 0RF naproxen 375 mg tablet 375 mg PO BID Qty: 14 0RF Follow-up/Referrals: UNKNOWN,DOCTOR [Non-Staff] -
[2024-12-06 18:23] LABS: Hematocrit 41.1 % (37.0-47.0); Hemoglobin 13.5 g/dL (12.0-15.0); Immature Granulocyte Percent A 0.4 % (0-0.5); Lymphocytes Absolute Auto 0.74 K/mm3 (0.9-3.2); Mean Corpuscular HGB Conc 32.8 g/dl (32-36); Mean Corpuscular Hemoglobin 28.2 pg (26-34); Mean Corpuscular Volume 85.8 fl (80-100); Nucleated Red Blood Cells Absolute Auto 0.000 K/mm3 (0.0-0.012); Nucleated Red Blood Cells Perc 0.0 % (0.0-0.2); Platelet Count Result 239 k/mm3 (150-375); Red Blood Count 4.79 M/mm3 (4.2-5.4); White Blood Count 11.8 K/mm3 (4.5-10.0)
[2024-12-06] MEDS: SODIUM CHLORIDE 0.9% IV 1,000 ML 999 ML IV CONT (18:23)
[2024-12-06] MEDS: METOCLOPRAMIDE HCL INJ 10 MG/2 ML VIAL IV PUSH (18:24)
[2024-12-06 18:35] LABS: Alanine Aminotransferase 21 U/L (6-35); Albumin Level 5.0 g/dL (3.5-5.1); Alkaline Phosphatase 62 U/L (38-126); Anion Gap 14 mmol/L (4-12); Aspartate Amino Transferase 27 U/L (14-36); Bilirubin,Total 0.9 mg/dL (0.2-1.3); Blood Urea Nitrogen 13 mg/dL (7-17); Calcium 9.9 mg/dL (8.4-10.2); Carbon Dioxide 20 mmol/L (22-30); Chloride 103 mmol/L (98-107); Estimated CRCL calculation 158 ml/min; Estimated Glomerular Filt Rate > 60; Glucose 98 mg/dL (65-110); Potassium 3.7 mmol/L (3.4-5.0); Sodium 137 mmol/L (137-145); Total Protein 8.2 g/dL (6.3-8.2)
--- OUTSIDE RECORDS SUMMARY | 2024-12-06 18:41 | XMS_ITS | Clinical Summary ---
Author Organization [facility] Address [address] [place] [address] Phone Care Team Providers Care Flagsetter Name Role Phone Unavailable Primary Care Provider [...] = 0.6 oz pur e alcohol) Occasionally [employer] Utilities Answer Date Recorded In the past 12 months has [employer], gas, oil, or water [employer] threatened to shut off services in your [...] often do you attend chur ch or spiritism services? Never 12/30/2023 Do you belong to any clubs o r organizations such as episcopal groups, unions, fraternal or athletic groups, or [...] Total Score - Questions 1-9 10 07/2022 [facility] - Occupational Stress [...] any time in the past 12 [address] [facility], were you homeless or living in a jail (including now)? No 12/30/2023 Comments Unknown Sex [...] Ready to change Department associated with goal: [facility] Steps to achieve goal: [...] Ready to change Department associated with goal: [facility] Steps to achieve goal: [...] PANEL ACUTE (AHP) Routine 05/22/2022 3:01 PM MEDICAL INTERN Chronic midline low back pain without sciatica from Last 3 Months or Most Recently Relevant to Health Maintenance Results * HEPATITIS PANEL ACUTE (AHP) (05/22/2022 3:01 PM MEDICAL INTERN) HEPATITIS A IGM ANTIBODY NON DETECTED NON DETECTED [place] [id number] 05/22/2022 9:20 PM MEDICAL INTERN [facility] Comment: IGM Antibodies to HAV not detected. Does not exclude early acute or recovered HAV infection. HEP B CORE AB (IGM) NON DETECTED NON DETECTED [address] 05/22/2022 9:20 PM MEDICAL INTERN [facility] Comment:IGM anti-HBC not det ected. Does not exclude the possibility of exposure to or infection with HBV. HEPATITIS B SURFACE ANTIGEN NON DETECTED NON DETECTED [address] 05/22/2022 9:20 PM MEDICAL INTERN [facility] Comment:A nonreactive test r esult does not exclude the possibility of exposure to or infection with Hepatitis B virus. A nonreactive test result in individuals with prior exposure to hepatitis B may be due to antigen levels below the detection limit of this assay or lack of antigen reactivity to the antibodies in this assay. hepatitis C antibody 0.16 <1 S/CO [address] 05/22/2022 9:20 PM MEDICAL INTERN [facility] Comment: Signal/Cutoff ratio < 0.79 is Nondetected Signal/Cutoff ratio 0.80-0.99 is Grayzone Signal/Cutoff ratio > 0.99 is Detected Supplemental assays are recommended if signal/cutoff ratio is >/=1.00. Signal/cutoff ratio result >/= 5.00 is 97% predictive of positivity for recombinant immunoblot assay (RIBA) and will be reported to the [place] Department of Public Health as required. Blood Venipuncture / Unknown 05/22/2022 3:01 PM MEDICAL INTERN 05/22/2022 3:31 PM MEDICAL INTERN us Kings Stanford MD HEMATOLOGY ORDERABLES Final Resu lt [facility] [address] [place] [address], [place] from Last 3 Months or Most Recently Relevant to Health Maintenance Insurance MEDICAID [employer] MEDICAID AETNA [facility] Advance Directives * Full Code (Latest Code Status on File) Date Activated Date Inactivated Comments 12/30/2023 2:32 AM CPR-Full Treat ment: FULL ARREST: Attempt Resuscitation/CPR wit intubation and mechanical ventilation. PRE-ARREST: Use entire range of life support measures to stabilize the patient.
--- OUTSIDE RECORDS SUMMARY | 2024-12-06 18:41 | XMS_ITS | Encounter Summary ---
Author Organization [facility] Address [address] [place] [address] Phone Care Team Providers Care Returned Goods Inspector Name Role Phone Kings Stanford MD Primary Care Provider [phone] Belkys Michele Unavailable Unavailab Gaurav Ross MD Unavailable [place] liu Reason for Visit * Reason Comments Medication Refill Encounter Details Date Type Department Care Team (Late st Contact Info) Description 09/22/2022 Refill [facility] - [facility] Medicine - [address] [place] [address] Di Philip APRN, SAFE DEPOSIT ATTENDANT [address] [address] Medication Refill Social History Tobacco [...] Total Score: 27 07/29/ 023 7:00 AM MUD WORKER documented as of this encounter Care Teams Returned Goods Inspector Relationship Specialty Start Date End Date Kings Stanford MD [address] [place] [address] PCP - General Family Medicine 04/28/22 12/02/24 Belkys Michele LSW [place] Director Of Student Financial Services 01/07/23 04/26/23 Gaurav Marquez MD [place] Consulting Physician Cardiovascular Disease - Cardiology 01/16/23 05/18/24 documented as of this encounter
--- OUTSIDE RECORDS SUMMARY | 2024-12-06 18:41 | XMS_ITS | Encounter Summary ---
Author Organization [facility] Address [address] [place] [address] Phone Care Team Providers Care Male Model Name Role Phone Kings Stanford MD Primary Care Provider [phone] Belkys Michele Unavailable Unavailab Gaurav Ross MD Unavailable Unapeewee liu Reason for Visit * Reason Comments Medication Refill Encounter Details Date Type Department Care Team (Late st Contact Info) Description 11/09/2022 [facility] [address] [place] [address] Sonali Dow, BANQUET BARTENDER, PAINTER PLATE [address] [place] [address] Medication Refill Social History Tobacco Use Types [...] 09/08/22 Office Visit Sonali Dow APRN, [facility] 07/28/22 Office Visit Kings Stanford MD Oshel[facility] Matos 05/22/22 Office Visit Kings Stanford MD [facility] Showing recent visits within past 182 [...] with anxiety Behavioral Health No Teena Aj, AVIATION ELECTRONIC WARFARE OPERATOR Note: Goal/Objective: Improve coping with depression and related anxiety. Anticipated Time Frame for Goal Completion: 6 months Goal Reviewed with: patient Readiness to change: Ready to change Department associated with goal: [facility] Steps to achieve goal: [...] to vent. Behavioral Health Yes Teena Aj, AVIATION ELECTRONIC WARFARE OPERATOR Note: Goal/Objective: Reduce mood fluctuations and improve coping with them. Anticipated Time Frame for Goal Completion: 6 months Goal Reviewed with: patient Readiness to change: Ready to change Department associated with goal: [facility] Steps to achieve goal: [...] documented as of this encounter Care Teams Male Model Relationship Specialty Start Date End Date Kings Stanford MD [address] [place] [address] PCP - General Family Medicine 04/28/22 12/02/24 Belkys Michele LSW [place] Cardiac Rehab Nurse 01/07/23 04/26/23 Gaurav Marquez MD [place] Consulting Physician Cardiovascular Disease - Cardiology 01/16/23 05/18/24 documented as of this encounter
--- OUTSIDE RECORDS SUMMARY | 2024-12-06 18:41 | XMS_ITS | Encounter Summary ---
Author Organization [facility] Address [address] [place] [address] Phone Care Team Providers Care Leadite Worker Name Role Phone Kings Stanford MD Primary Care Provider [phone] Belkys Michele [employer] FACTORY WORKER Unavailable Unavailab Gaurav Ross MD Unavailable Unapeewee liu Reason for Visit * Reason Onset Date Comments Referral 02/19/2023 RE:EXTERNAL GYNE COLOGY REFERRAL Encounter Details Date Type Department Care Team (Late st Contact Info) Description 02/19/2023 Telephone [facility] [address] [place] [address] Kings Stanford MD [address] [place] [address] Referral (RE:EXTERNAL GYNECOLOGY REFERRAL) Social [...] following option(s): Cancel existing referral. Salome Seals [facility] 02/19/2023, 8:59 AM [...] Ready to change Department associated with goal: [facility] Steps to achieve [...] Ready to change Department associated with goal: [facility] Steps to achieve [...] documented as of this encounter Care Teams Leadite Worker Relationship Specialty Start Date End Date Kings Stanford MD [address] [place] [address] PCP - General Family Medicine 04/28/22 12/02/24 Belkys Michele LSW [place] Tribal Judge 01/07/23 04/26/23 Gaurav Marquez MD [place] Consulting Physician Cardiovascular Disease - Cardiology 01/16/23 05/18/24 documented as of this encounter
--- OUTSIDE RECORDS SUMMARY | 2024-12-06 18:41 | XMS_ITS | Referral Summary ---
Author Organization [facility] [address] Address [address] [place] [address] Phone Care Team Providers Care Ben Day Artist Name Role Phone Sebastian Mcelroy MD Unavailable Chelsey High NP Primary Care Provider [phone] Encounters Date Type Department Care Team Description 11/29/2024 Orders Only [facility] [address] [place] [address] Alcira Adams, Encounter to determine viability of , single or unspecified fetus (Primary Dx) 11/25/2024 Results Follow-Up [facility] [address] [place] [phone] Zoila Ayala NP Vaginitis panel Vaginal, Urine culture Urine, bladder 11/24/2024 8:15 PM CDT - 11/24/2024 11:59 PM CDT Hospital Encounter [address] [address] Acute vaginitis; Burning with urination Discharge Disposition: Discharge to home or self care 11/24/2024 3:15 PM CDT Office Visit [facility] [address] [place] [phone] Camille Lloyd NP Burning with urination (Primary Dx); Acute cystitis with hematuria; Acute vaginitis 09/19/2024 1:00 PM CDT Office Visit [facility] [address] [place] [address] Art Stover MD Tachycardia with [...] any clubs o r organizations such as sabianism groups, unions, fraternal or athletic groups, or [...] staff should administer the PHQ-9) 0 [facility] Questionnaire Answer Date [...] place to sleep or slept in a custodial (including now)? No 06/05/2022 Estimated Date of Delivery Comme nts Yes 07/19/2025 Sex and Gender Information Value Date Recorded Sex Assigned at Not on file Legal Sex Female 10:18 AM WINE PASTEURIZER Gender Identity Not on file Sexual Orientation [...] Negative Ketones, ur, POC Negative Negative Specific [place], POC 1.010 1.003 - 1.030 Blood, ur, POC Moderate(A) Negative pH, ur, POC 6.5 5.0 - 8.0 Protein, ur, POC Negative Negative Urobilinogen, urine, POC 0.2 0.2 - 1.0 mg/dL Nitrite, ur, POC Negative Negative Leukocytes, ur, POC Small(A) Negative Lot Number [id number] Urine 11/24/2024 3:16 PM CDT Camille Lloyd [...] CH - 11/24/2024 10:02 PM CDT The [email or web address] Xpert Xpress MVP test detects DNA targets [...] this test have been verified by the [facility]. Camille Lloyd NP LAB MICROBIOLOGY - GENERAL ORDERABLES Final Result Performing Organization Address City/[facility]/ZIP Co de Phone Number ASHLEY [id number] [address] [employer] [place] [address] CH * (ABNORMAL) Urine culture Urine, bladder [...] bacterial trevor. (.) Comment:Testing performed by : [facility], [address] [place]., [address] Organism STAPHYLOCOCCUS SAPROPHYTICUS ASHLEY Organism PLUS GROWTH OF CLINICALLY INSIGNIFICANT TREVOR. ASHLEY Urine, bladder 11/24/2024 12 :00 PM CDT 11/25/2024 1:57 AM CDT Narrative ASHLEY - 11/26/2024 5:51 AM CDT Testing performed by [facility] ([phone]) Camille Lloyd NP LAB MICROBIOLOGY - GENERAL ORDERABLES Final Result ASHLEY [id number] [address] Department [place] [address] * Electrocardiogram Report (09/19/2024 3:20 PM CDT) Art Stover MD ECG ORDERABLES Final Result * N. gonorrhoeae/C. trachomatis Amplification Urine (04/07/2022 9:48 PM CDT) C. trachomatis Not detected Not detected ASHLEY PUGA (AMY) Comment:Testing performed by : [address] [address] N. gonorrhoeae Not detected Not detected ASHLEY PUGA (AMY) Comment: Testing performed by the [facility]. This assay detects Chlamydia trachomatis and Neisseria gonorrhoeae by nucleic acid amplification testing (NAAT). This test is approved by the [facility] Food and Drug Administration and the performance characteristics have been verified by the laboratory. The performance characteristics of this test have not been evaluated in women or individuals less than 16 years of age. Testing performed by: [address] [address] Urine (None) 04/07/2022 9:48 PM CDT 04/08/2022 10:13 AM CDT Isabel Hdez MD LAB MICROBIOLOGY - GENERAL ORDERABLES Final Result ASHLEY [facility] (AMY) [address] Department [place] [address] from Last 3 Months or Most Recently Relevant to Health Maintenance Insurance AETNA [facility] Advance Directives For more information, please contact: [phone] * Full Code (Latest Code Status on File) Date Activated Date Inactivated Comments 06/04/2022 5:42 AM 06/06/2022 5:39 PM * Full Code Date Activated Date Inactivated Comments 06/04/2022 12:40 AM 06/04/2022 5:42 AM Full CPR in case of cardiopulmonary arrest Care Teams Ben Day Artist Relationship Specialty Start Date End Date Chelsey High NP [address] [place] [address] PCP - General Family Medicine 08/22/24 Sebastian Mcelroy MD [address] [place] [address] [address] SONALI Montel[address] [place] [address] Diesel Pile Hammer Operator Obstetrics and Gynecology 06/05/22
--- OUTSIDE RECORDS SUMMARY | 2024-12-06 18:41 | XMS_ITS | Encounter Summary ---
Author Organization [facility] Address [address] [place] [address] Phone Care Team Providers Care Plant Culture Manager Name Role Phone Kings Stanford MD Primary Care Provider [phone] Belkys Michele PAINT SUPERVISOR Unavailable Unavailab Gaurav Ross MD Unavailable Unapeewee liu Reason for Visit * Reason Comments Medication Refill Encounter Details Date Type Department Care Team (Late st Contact Info) Description 04/04/2023 Refill [facility] [address] [place] [address] Kings Stanford MD [address] [place] [address] Medication Refill Social History Tobacco Use Types [...] with anxiety Behavioral Health No Teena Aj, REGIONAL WILDLIFE AGENT Note: Goal/Objective: Improve coping with depression and related anxiety. Anticipated Time Frame for Goal Completion: 6 months Goal Reviewed with: patient Readiness to change: Ready to change Department associated with goal: [facility] Steps to [...] place to vent. Behavioral Health Yes Teena jA, REGIONAL WILDLIFE AGENT Note: Goal/Objective: Reduce mood fluctuations and improve coping with them. Anticipated Time Frame for Goal Completion: 6 months Goal Reviewed with: patient Readiness to change: Ready to change Department associated with goal: [facility] Steps to [...] documented as of this encounter Care Teams Plant Culture Manager Relationship Specialty Start Date End Date Kings Stanford MD [address] [place] [address] PCP - General Family Medicine 04/28/22 12/02/24 Belkys Michele LSW [place] Food Management Aide 01/07/23 04/26/23 Gaurav Marquez MD [place] Consulting Physician Cardiovascular Disease - Cardiology 01/16/23 05/18/24 documented as of this encounter
--- OUTSIDE RECORDS SUMMARY | 2024-12-06 18:41 | XMS_ITS | Clinical Summary ---
Author Organization [facility] [address] Address [address] [place] [address] Phone Care Team Providers Care Model Builder Display Name Role Phone Sebastian Mcelroy MD Unavailable [phone] Chelsey High NP Primary Care Provider [phone] Allergies No known active allergies Medications cyclobenzaprine [...] Department Care Team Description 11/29/2024 Orders Only [facility] [address] [place] [phone] Alcira Adams, Encounter to determine viability of , single or unspecified fetus (Primary Dx) 11/25/2024 Results Follow-Up [facility] [address] [place] [phone] Zoila Ayala NP Vaginitis panel Vaginal, Urine culture Urine, bladder 11/24/2024 8:15 PM CDT - 11/24/2024 11:59 PM [place] [address] Acute vaginitis; Burning with urination Discharge Disposition: Discharge to home or self care 11/24/2024 3:15 PM CDT Office Visit [facility] [address] [place] [phone] Camille Lloyd NP Burning with urination (Primary Dx); Acute cystitis with hematuria; Acute vaginitis 09/19/2024 1:00 PM CDT Office Visit [facility] Card[facility] [address] [place] [address] Art Stover MD Tachycardia with [...] often do you attend chur ch or yazidism services? Never 06/05/2022 Do you belong to any clubs o r organizations such as congregation groups, unions, fraternal or athletic groups, or [...] should administer the PHQ-9) 0 08/22/2024 [facility] - Occupational Stress Questionnaire Answer Date [...] place to sleep or slept in a longterm (including now)? No 06/05/2022 Estimated Date of Delivery Comme nts Yes 07/19/2025 Sex and Gender Information Value Date Recorded Sex Assigned at Not on file Legal Sex Female 10:18 AM WICKER WORKER Gender Identity Not on file Sexual [...] Negative Ketones, ur, POC Negative Negative Specific [place], POC 1.010 1.003 - 1.030 Blood, ur, POC Moderate(A) Negative pH, ur, POC 6.5 5.0 - 8.0 Protein, ur, POC Negative Negative Urobilinogen, urine, POC 0.2 0.2 - 1.0 mg/dL Nitrite, ur, POC Negative Negative Leukocytes, ur, POC Small(A) Negative Lot Number [id number] Urine 11/24/2024 3:16 PM CDT Camille Lloyd [...] CH - 11/24/2024 10:02 PM CDT The [employer]ep[employer] Xpert Xpress MVP test detects DNA targets [...] test have been verified by the [facility]. Camille Lloyd NP LAB MICROBIOLOGY - GENERAL ORDERABLES Final Result ASHLEY [address] [place] [address] CH * (ABNORMAL) Urine culture [...] bacterial trevor. (.) Comment:Testing performed by : [facility], [address] [place]., [address] Organism STAPHYLOCOCCUS SAPROPHYTICUS ASHLEY MORGAN Organism PLUS GROWTH OF CLINICALLY INSIGNIFICANT TREVOR. ASHLEY MORGAN Urine, bladder 11/24/2024 12 :00 PM CDT 11/25/2024 1:57 AM CDT Narrative ASHLEY - 11/26/2024 5:51 AM CDT Testing performed by [facility] Microbiology Laboratory ([phone]) Camille Lloyd NP LAB MICROBIOLOGY - GENERAL ORDERABLES Final Result ASHLEY [address] [place] [address] * Electrocardiogram Report (09/19/2024 3:20 PM CDT) Art Stover MD ECG ORDERABLES Final Result * N. gonorrhoeae/C. trachomatis Amplification Urine (04/07/2022 9:48 PM CDT) C. trachomatis Not detected Not detected ASHLEY PUGA (AMY) Comment:Testing performed by : [address] [address] N. gonorrhoeae Not detected Not detected ASHLEY [facility] (AMY) Comment: Testing performed by the [facility]. This assay detects Chlamydia trachomatis and Neisseria gonorrhoeae by nucleic acid amplification testing (NAAT). This test is approved by the [facility] Food and Drug Administration and the performance characteristics have been verified by the laboratory. The performance characteristics of this test have not been evaluated in women or individuals less than 16 years of age. Testing performed by: [address], [address] Urine (None) 04/07/2022 9:48 PM CDT 04/08/2022 10:13 AM CDT Isabel Hdez MD LAB MICROBIOLOGY - GENERAL ORDERABLES Final Result ASHLEY [facility] (AMY) [address] [facility] Department [place] [address] from Last 3 Months or Most Recently Relevant to Health Maintenance Insurance [employer] [facility] Advance Directives For more information, please contact: [phone] * Full Code (Latest Code Status on File) Date Activated Date Inactivated Comments 06/04/2022 5:42 AM 06/06/2022 5:39 PM * Full Code Date Activated Date Inactivated Comments 06/04/2022 12:40 AM 06/04/2022 5:42 AM Full CPR in case of cardiopulmonary arrest Care Teams Model Builder Display Relationship Specialty Start Date End Date Chelsey High NP [address] [facility] [address] [place] [address] PCP - General Family Medicine 08/22/24 Seabstian Mcelroy MD [address] [place] [address] DR SONALI Montelongo [address] [place] [address] Nurse Orthopaedic Obstetrics and Gynecology 06/05/22
--- OUTSIDE RECORDS SUMMARY | 2024-12-06 18:41 | XMS_ITS | Encounter Summary ---
Author Organization [facility] Address [address] [place] [address] Phone Care Team Providers Care Dispatcher Motor Vehicle Name Role Phone Kings Stanford MD Primary Care Provider [phone] Belkys Michele IT SECURITY CONSULTANT Unavailable Unavailab Gaurav Ross MD Unavailable Unapeewee liu Reason for Visit * Reason Comments Medication Refill Encounter Details Date Type Department Care Team (Late st Contact Info) Description 08/24/2022 Refill [facility] [address] [place] [address] Kings Stanford MD [address] [place] [address] Medication Refill Social History Tobacco Use Types [...] Coronavirus/COVID-19? No / Unsure 07/28/2022 3:00 PM TRANSIT POLICE OFFICER documented as of this encounter Miscellaneous Notes [...] Provider Dept 09/05/22 Appointment Kings Stanford MD [facility] Showing future appointments within next 90 [...] PHQ-9 Depression Total Score: 023 7:00 AM TRANSIT POLICE OFFICER documented as of this encounter Care Teams Dispatcher Motor Vehicle Relationship Specialty Start Date End Date Kings Stanford MD [address] [place] [address] PCP - General Family Medicine 04/28/22 12/02/24 Belkys Michele LSW [place] Senior Risk Manager 01/07/23 04/26/23 Gaurav Marquez MD [place] Consulting Physician Cardiovascular Disease - Cardiology 01/16/23 05/18/24 documented as of this encounter
--- OUTSIDE RECORDS SUMMARY | 2024-12-06 18:41 | XMS_ITS | Encounter Summary ---
Author Organization [facility] Address [address] [place] [address] Phone Care Team Providers Care Endodontist Name Role Phone Kings Stanford MD Primary Care Provider [phone] Belkys Michele Unavailable Unavailab Gaurav Ross MD Unavailable Unapeewee liu Reason for Visit * Reason Comments Medication Refill Encounter Details Date Type Department Care Team (Late st Contact Info) Description 10/05/2022 Refill [facility] [address] [place] [address] Sonali Dow, BLASTING COAL MINER, HIP HOP PERFORMERS [address] [place] [address] Medication Refill Social History Tobacco Use Types [...] Dept 09/08/22 Office Visit Sonali Dow, SURJIT, HIP HOP PERFORMERS [facility] 07/28/22 Office Visit Kings Stanford MD [facility] 05/22/22 Office Visit Kings [facility] MD [facility] Showing recent visits within past 182 days and meeting all other requirements Future Appointments Date Type Provider Dept 10/10/22 Appointment Kings [facility] MD [facility] Showing future appointments within next 90 [...] with anxiety Behavioral Health No Teena Aj, JUNIOR LINUX ADMINISTRATOR Note: Goal/Objective: Improve coping with depression and related anxiety. Anticipated Time Frame for Goal Completion: 6 months Goal Reviewed with: patient Readiness to change: Ready to change Department associated with goal: [facility] Steps to achieve goal: [...] to vent. Behavioral Health Yes Teena Aj, JUNIOR LINUX ADMINISTRATOR Note: Goal/Objective: Reduce mood fluctuations and improve coping with them. Anticipated Time Frame for Goal Completion: 6 months Goal Reviewed with: patient Readiness to change: Ready to change Department associated with goal: [facility] Steps to achieve goal: [...] documented as of this encounter Care Teams Endodontist Relationship Specialty Start Date End Date Kings Stanford MD [address] [place] [address] PCP - General Family Medicine 04/28/22 12/02/24 Belkys Michele LSW [place] Ground Water Pump Installer 01/07/23 04/26/23 Gaurav Marquez MD [place] Consulting Physician Cardiovascular Disease - Cardiology 01/16/23 05/18/24 documented as of this encounter
--- OUTSIDE RECORDS SUMMARY | 2024-12-06 18:41 | XMS_ITS | Clinical Summary ---
Author Organization [facility] Address [address] [place] [address] Care Team Providers Care Sales Analyst Name Role Phone None, Provider MD Primary [...] patient's age to complete this topic Insurance [facility] Care Teams Sales Analyst Relationship Specialty Start Date End Date None, Provider, PCP - General UNKNOWN PHYSICIAN SPECIALTY 02/16/24
--- OUTSIDE RECORDS SUMMARY | 2024-12-06 18:41 | XMS_ITS | Encounter Summary ---
Author Organization [facility] Address [address] [place] [address] Phone Care Team Providers Care Senior Consumer Insights Consultant Name Role Phone Kings Stanford MD Primary Care Provider [phone] Belkys Michele MEDICAL RESEARCH ASSISTANT Unavailable Unavailab Gaurav Ross MD Unavailable Unapeewee liu Reason for Visit * Reason Comments Medication Refill Encounter Details Date Type Department Care Team (Late st Contact Info) Description 10/21/2022 Refill [facility] - Family Medicine [facility] [address] [place] [address] Kings Stanford MD [address] [place] [address] Medication Refill Social History Tobacco Use Types [...] Provider Dept 09/08/22 Office Visit Sonali Dow, GARBAGE TRUCK DRIVER, GLASS CYLINDER FLANGER [facility] 07/28/22 Office Visit Kings Stanford MD [facility] 05/22/22 Office Visit [facility] Show[facility] recent visits within past 182 days [...] with anxiety Behavioral Health No Teena Aj, SERVICE STATION CONSOLE OPERATOR Note: Goal/Objective: Improve coping with depression and related anxiety. Anticipated Time Frame for Goal Completion: 6 months Goal Reviewed with: patient Readiness to change: Ready to change Department associated with goal: [facility] Steps to achieve goal: [...] to vent. Behavioral Health Yes Teena Aj, SERVICE STATION CONSOLE OPERATOR Note: Goal/Objective: Reduce mood fluctuations and improve coping with them. Anticipated Time Frame for Goal Completion: 6 months Goal Reviewed with: patient Readiness to change: Ready to change Department associated with goal: [facility] Steps to achieve goal: [...] documented as of this encounter Care Teams Senior Consumer Insights Consultant Relationship Specialty Start Date End Date Kings Stanford MD [address] [place] [address] PCP - General Family Medicine 04/28/22 12/02/24 Belkys Michele LSW [place] Skoog Operator 01/07/23 04/26/23 Gaurav Marquez MD [place] Consulting Physician Cardiovascular Disease - Cardiology 01/16/23 05/18/24 documented as of this encounter
--- OUTSIDE RECORDS SUMMARY | 2024-12-06 18:41 | XMS_ITS | Encounter Summary ---
Author Organization [facility] Address [address] [place] [address] Phone Care Team Providers Care It Desktop Support Technician Name Role Phone Kings Stanford MD Primary Care Provider [phone] Belkys Michele FIELD WORKER Unavailable Unavailab Gaurav Ross MD Unavailable Unapeewee liu Reason for Visit * Reason Comments Medication Refill Encounter Details Date Type Department Care Team (Late st Contact Info) Description 03/04/2023 Refill [facility] - Family Medicine [facility] [address] [place] [address] Kings Stanford MD [address] [place] [address] Medication Refill Social History Tobacco Use Types [...] Stanford MD [facility] 12/15/22 Office Visit iD Philip APRN, [facility] 11/20/22 Office Visit Kings Stanford MD [facility] 09/08/22 Office Visit Sonali Dow APRN, [facility] 07/28/22 Office Visit Kings Stanford MD [facility] 05/22/22 Office Visit Kings Stanford MD [facility] Showing recent visits within past 365 [...] with anxiety Behavioral Health No Teena Aj, ASSISTANT PROFESSOR OF RELIGION Note: Goal/Objective: Improve coping with depression and related anxiety. Anticipated Time Frame for Goal Completion: 6 months Goal Reviewed with: patient Readiness to change: Ready to change Department associated with goal: [facility] Steps to [...] change Department associated with goal: [facility] Steps to [...] documented as of this encounter Care Teams It Desktop Support Technician Relationship Specialty Start Date End Date Kings Stanford MD [address] [place] [address] PCP - General Family Medicine 04/28/22 12/02/24 Belkys Michele LSW [place] Vice President Of Academic Affairs 01/07/23 04/26/23 Gaurav Marquez MD [place] Consulting Physician Cardiovascular Disease - Cardiology 01/16/23 05/18/24 documented as of this encounter
--- OUTSIDE RECORDS SUMMARY | 2024-12-06 18:41 | XMS_ITS | Clinical Summary ---
Author Organization [facility] [employer] Address [address] [place] [address] Care Team Providers Care Pressing Machine Tender Name Role Phone Radha Jose MD Primary Care Provider [phone] Source Comments [facility] [employer],non-owned Affiliates and Associated Physician Practices is amultiple site organization consisting of ambulatory clinics and hospital sitesin [place], [place], [place]. This disclosure is being madepursuant to the Care Everywhere program and may not contain all information available regarding this patient. Last updated 18.[facility] [employer] Allergies No known active allergies Medications * [...] Active vitamin D, ergocalciferol, (DRISDOL) 1.25 MG (27514 UT) capsule TAKE 1 CAPSULE BY MOUTH [...] Other Mother cervical Miscarriage Mother Other - Manager Internet Paternal Aunt endometriosis Cancer - Skin, Melanoma [...] (166 lb 14.2 oz) 08/01/2016 9:22 AM TRENCHING MACHINE OPERATOR Height 165 cm (5' 4.96) 08/01/2016 9:22 AM TRENCHING MACHINE OPERATOR Body Mass Index 27.8 08/01/2016 9:22 AM TRENCHING MACHINE OPERATOR Plan of Treatment Health Maintenance Due Date [...] GC AMPLIFIED PROBE Routine 05/26/2019 4:22 PM TRENCHING MACHINE OPERATOR Screening for STD (sexually transmitted disease) from Last 3 Months or Most Recently Relevant to Health Maintenance Results * CHLAMYDIA + GC AMPLIFIED PROBE (STL) (05/26/2019 4:22 PM TRENCHING MACHINE OPERATOR) Chlamydia Amplified Probe Negative Negative 05/27/2019 10:16 AM TRENCHING MACHINE OPERATOR [facility] MICROBIOLOGY GC Amplified Probe Negative Negative 05/27/2019 10:16 AM TRENCHING MACHINE OPERATOR [facility] MICRO[facility]Y Microbiology URINE / Unknown Collection / Unknown 05/26/2019 4:22 PM TRENCHING MACHINE OPERATOR 05/26/2019 4:18 PM TRENCHING MACHINE OPERATOR Narrative [facility] MICROBIOLOGY - 05/27/2019 10:16 AM TRENCHING MACHINE OPERATOR Results based on detection/no detection of ribosomal RNA by amplified method. us Daisy Macario MD LAB - MICROBIOLOGY ORD ERABLES Final Result [facility] MICROBIOLOGY [address] [place] [address], [facility] [phone] from Last 3 Months or Most Recently Relevant to Health Maintenance Insurance [facility] MEDICAID - [facility] [place] [address] [address] HEALTH PLAN MEDICAID - [place] [employer] HE[employer] PLAN [facility] Care Address: [address] [address] [place] [address] [facility] OUT OF STATE [facility] MEDICAID - OUT OF STATE Care Teams Pressing Machine Tender Relationship Specialty Start Date End Date Radha Jose MD [address] [place] [id number] PCP - General Pediatrics 05/03/19
[2024-12-06] MEDS: LACTATED RINGERS 1,000 ML 999 ML IV CONT (19:09)
[2024-12-06 19:13] LABS: Beta HCG Quantitative 149280.00 mIU/ML
[2024-12-06 20:07] LABS: BEDSIDEPREGUCG Positive (Negative)
[2024-12-06 20:21] LABS: Add Urine Microscopic? YES; Appearance Urine Cloudy (Clear); Glucose Urine UA Negative (Negative); Leukocyte Esterase Ur 1+ LEU/UL (Negative); Nitrate Urine Negative (Negative); Specific Grav Ur 1.036 (1.001-1.035)
[2024-12-06] MEDS: ONDANSETRON INJ 4 MG/2 ML VIAL IV PUSH (20:59)
[2024-12-06 22:07] VITALS: BP 132/74; PULSE 80; RESP 16; O2SAT 99
[2024-12-06 22:12] LABS: Anion Gap 9 mmol/L (4-12); Blood Urea Nitrogen 11 mg/dL (7-17); Calcium 9.2 mg/dL (8.4-10.2); Carbon Dioxide 22 mmol/L (22-30); Chloride 106 mmol/L (98-107); Estimated CRCL calculation 176 ml/min; Estimated Glomerular Filt Rate > 60; Glucose 88 mg/dL (65-110); Potassium 3.8 mmol/L (3.4-5.0); Sodium 137 mmol/L (137-145)
== END 2024-12-06 22:40 | disposition home or self-care (01) ==
PROVIDERS: Emergency Medicine; Emergency Provider Physician Assistant
DX: O21.9 Vomiting of pregnancy, unspecified (principal); O99.281 Endocrine, nutritional and metabolic diseases complicating pregnancy, first trimester; E86.0 Dehydration; O23.41 Unspecified infection of urinary tract in pregnancy, first trimester; N39.0 Urinary tract infection, site not specified; O99.891 Other specified diseases and conditions complicating pregnancy; N80.9 Endometriosis, unspecified; O99.511 Diseases of the respiratory system complicating pregnancy, first trimester; J45.909 Unspecified asthma, uncomplicated; E28.2 Polycystic ovarian syndrome; Z3A.01 Less than 8 weeks gestation of pregnancy
CPT/HCPCS: 36415; 76801; 80048; 80053; 81001; 81025; 84702; 85025; 87086; 96361; 96374; 96375; 99284; J1200; J2405; J2765; J7030; J7120